=== PATIENT | female | born 1950 | race Caucasian/White ===

== ENCOUNTER 2019-02-15 16:58 | Inpatient (IN) | payer OTHER ==
--- NOTE | 2019-02-15 17:45 | PDOC ---
History of Present Illness - General Chief Complaint: Shortness of Breath Stated Complaint: BACK PAIN,SOB Time Seen by Provider: 02/15/19 17:03 - History of Present Illness Initial Comments: 69F PMH HTN, osteoporosis BIBEMS for SOB in setting of 1 week of increasingly severe thoracic back pain radiating to the left costal margin. Pt was seen for this pain at [facility], was found to be hyponatremic (?water restriction), admitted, was told pt has disc herniation. Pt's family unhappy with care received there and AMA'd on Tuesday02/12/19. Pain has been worsening since AMA; pt who is usually ambulatory unable to ambulate now 2/2 pain. SOB started today , occurs w/ deep breaths. Pain worse w/ change of position. Denies urinary retention, bladder and bowel incontinence, saddle numbness, extremity numbness, tingling, focal weakness. Denies f/c, malignancy hx, IVDU, cp, n/v. No personal or family hx VTE, no recent immobilization, surgeries, or travel. Atraumatic w/ o fall. PCP as per system NKDA No known lung pathology hx obtained w/ assistance by family at bedside Past History - Past Medical History Allergies/Adverse Reactions: Allergies Allergy/AdvReac Type Severity Reaction Status Date / Time No Known Allergies Allergy Verified 02/15/19 17:15 Home Medications: Ambulatory Orders Alendronate Sodium 35 mg PO WEEKLY 02/16/19 Levothyroxine [Synthroid -] 112 mcg PO DAILY 02/16/19 Lisinopril [Zestril] 2.5 mg PO DAILY 02/16/19 Loratadine 10 mg PO DAILY 02/16/19 Omeprazole 40 mg PO DAILY 02/16/19 Acetaminophen [Tylenol] 650 mg PO Q6H PRN #30 capsule 02/19/19 Calcium 250Mg/Vit-D 125 Units [Oscal 250 mg+D -] 1 tab PO DAILY tab 02/19/19 Lidocaine 5% Patch [Lidoderm -] 1 patch TP DAILY #30 patch 02/19/19 COPD: No HTN: Yes Hypercholesterolemia: (osteoporosis, herniated vertebral disc) - Surgical History Abdominal Surgery: Yes (right inguinal hernia repair) - Psycho Social/Smoking Cessation Hx Smoking History: Never smoked Information on smoking cessation initiated: No Hx Alcohol Use: No Drug/Substance Use Hx: No Review of Systems - Review of Systems Comments:: CONSTITUTIONAL: Denies F / C. Denies acute unintentional weight loss. HEENT: Endorses vertigo & dizziness w/ standing RESP: Endorses SOB CARD: Denies chest pain GI: Denies N / V / D, abdominal pain, bowel incontinence : Denies urinary retention, urinary incontinence SKIN: Denies rashes NEURO: Denies numbness, tingling, weakness MSK: Endorses thoracic back pain *Physical Exam - Vital Signs Last Vital Signs Temp Pulse Resp BP Pulse Ox 97.6 F 90 16 141/55 L 100 02/15/19 17:44 02/15/19 17:00 02/15/19 17:00 02/15/19 17:00 02/15/19 17:00 - Physical Exam VS: SaO2 88-90% RA GEN: Cachetic, thin. AAOx3. HEENT: NC/AT, EOMI, PERRLA, lazy eye. No facial asymmetry. Moist mucous membranes. Normal voice. Supple neck w/ FROM. CV: +TTP of the left costal margin, no rash. S1/S2, RRR, no m/r/g LUNG: Normal respiratory effort. CTAB, no wheezes, crackles, rales, rhonchi. GI: Soft, ndnt, +BS EXTREMITIES: 2+ distal pulses. No LE edema. No obvious deformities of all extremities. SKIN: Warm, dry. no rashes overlying the painful area. No tenderness to brisk touch overlying region. PSYCH: Normal mood and affect. NEURO: Moving all extremities. 5/5 UE strength b/l. 4/5 LE strength b/l. Symmetric sensation. No groin anesthesia. BACK: Kyphotic. +TTP of the low thoracic region - paraspinal and midline. No step offs. No signs of trauma. ED Treatment Course - LABORATORY CBC & Chemistry Diagram: 02/18/19 07:23 02/19/19 12:05 Medical Decision Making - Medical Decision Making 02/15/19 18:24 69F PMH Osteoporosis BIBEMS for SOB and worsening thoracic level back pain. Neurologically intact. SaO2 on RA was 88-90%; started on 2L NC. DDx - concern for malignancy, compression fracture. Unlikely zoster. Will eval for ACS, dehydration, electrolytes abnormality - CBC, CMP, Cardiac - EKG - CXR - CT Head, C/T/L spine - pain ctrl 02/15/19 19:00 Signed out to PM team for further management Likely admit Discharge - Discharge Information Problems reviewed: Yes Clinical Impression/Diagnosis: Back pain Qualifiers: Back pain location: thoracic back pain Chronicity: unspecified Back pain laterality: unspecified Qualified Code(s): M54.6 - Pain in thoracic spine - Follow up/Referral - Patient Discharge Instructions - Post Discharge Activity
[2019-02-15] MEDS ORDERED: LIDOCAINE 5% TOPICAL PATCH TP ONE (18:01)
[2019-02-15] MEDS ORDERED: ACETAMINOPHEN 325 MG TABLET (FP) PO ONE (18:01)
[2019-02-15] MEDS ORDERED: LIDOCAINE 5% TOPICAL PATCH ONE ×2 (18:49→22:23)
[2019-02-15] MEDS ORDERED: ACETAMINOPHEN 325 MG TABLET (FP) ONE (18:49)
--- NOTE | 2019-02-15 19:11 | PDOC ---
*Physical Exam - Vital Signs Last Vital Signs Temp Pulse Resp BP Pulse Ox 97.6 F 90 16 141/55 L 100 02/15/19 17:44 02/15/19 17:00 02/15/19 17:00 02/15/19 17:00 02/15/19 17:00 ED Treatment Course - Medications Given in the ED: ED Medications Discontinued Medications Generic Name Dose Route Start Last Admin Trade Name Freq PRN Reason Stop Dose Admin Acetaminophen 650 mg 02/15/19 18:01 02/15/19 19:01 Tylenol - PO 02/15/19 18:02 650 mg ONCE ONE Administration Lidocaine 1 patch 02/15/19 18:01 02/15/19 19:01 Lidoderm Patch - TP 02/15/19 18:02 1 patch ONCE ONE Administration Medical Decision Making - Medical Decision Making 02/15/19 19:57 Sign out received from Dr. Recinos. 69F w/hx HTN, osteoporosis p/w one week of sob, back pain concerning for malignancy, compression fracture. Pending: Labs Imaging Dispo: Likely admit Discharge - Follow up/Referral Referrals: Melodie Mccormack MD [Primary Care Provider] - - Patient Discharge Instructions - Post Discharge Activity
[2019-02-15 20:15] LABS: BASO % 0.4 % (0-2.0); EOS % 0.2 % (0-4.5); HEMATOCRIT 40.7 % (32.4-45.2); HEMOGLOBIN 12.9 GM/dL (10.7-15.3); MCH 26.4 pg (25.7-33.7); MCHC 31.8 g/dl (32.0-36.0); MEAN CELL VOLUME 83.2 fl (80-96); MEAN PLT VOLUME 7.8 fl (7.5-11.1); MONO % 7.1 % (3.8-10.2); NEUT % 78.3 % (42.8-82.8); PLATELET COUNT 258 K/MM3 (134-434); RBC 4.89 M/mm3 (3.60-5.2); RDW 17.1 % (11.6-15.6); WHITE BLOOD COUNT 4.5 K/mm3 (4.0-10.0)
[2019-02-15 20:38] LABS: ALBUMIN 3.4 g/dl (3.4-5.0); BILIRUBIN,TOTAL 0.1 mg/dL (0.2-1); CALCIUM 8.8 mg/dL (8.5-10.1); CREATININE 0.7 mg/dL (0.55-1.3); N-TERMINAL BNP 321.5 pg/ml (5-125); POTASSIUM 4.5 mmol/L (3.5-5.1); TOT PROT 7.7 g/dl (6.4-8.2)
--- NOTE | 2019-02-15 21:15 | PDOC ---
Documentation entered by Lyla Lawson SCRIBE, acting as scribe for Mj Jenkins MD. Mj Jenkins MD: This documentation has been prepared by the Lulu simon Brenda, SCRIBE, under my direction and personally reviewed by me in its entirety. I confirm that the documentation accurately reflects all work, treatment, procedures, and medical decision making performed by me. Attending Attestation - Resident Resident Name: Jose Luis Recinos - ED Attending Attestation I have performed the following: I have examined & evaluated the patient, The case was reviewed & discussed with the resident, I agree w/resident's findings & plan, Exceptions are as noted - HPI HPI: 02/15/19 18:03 The patient is a 69 year old female, with a significant PMH of HTN, osteoporosis , thyroid disorder who presents to the emergency department BIB with shortness of breath associated with 1 week as well as thoracic back pain radiating to the right and left side. Patient reports being seen at [facility] for the same pain and found to be hyponatremic and was admitted for a disc herniation. Patient's family was unhappy with care so AMA'd on Tuesday (02/12/2019). The patient reports that the pain has been worsening since the AMA and has been unable to ambulate due to pain (normally ambulates). Patient states that the SOB started today and is aggravated by deep breaths and change of position. + mild non productive cough for 5 days. Family and pt denies any recent falls or trauma. The patient denies chest pain, headache and dizziness. Denies fever, chills, nausea, vomiting, diarrhea and constipation. Denies dysuria, frequency, urgency and hematuria. Allergies: NKA Past surgical history: right inguinal hernia repair Social history: No reported hx of tobacco use, alcohol use or illicit drug use. PCP: Melodie Mccormack - Physicial Exam PE: 02/15/19 18:05 GENERAL: Awake, alert, and fully oriented, in no acute distress. Very thin. HEAD: No signs of trauma EYES: Sclera anicteric, conjunctiva clear ENT: Oropharynx clear without exudates. Moist mucosa NECK: Normal ROM, supple, no lymphadenopathy, JVD, or masses LUNGS: Breath sounds equal, clear to auscultation bilaterally. No wheezes, and no crackles HEART: Regular rate and rhythm, normal S1 and S2, no murmurs, rubs or gallops ABDOMEN: Soft, nontender, normoactive bowel sounds. No guarding, no rebound. No masses EXTREMITIES: +boutinere's deformities to fingers b/l. Normal range of motion, no edema. No clubbing or cyanosis. No cords, erythema, or tenderness. 2+ radial and DP/TP pulses b/l BACK: +diffuse cervical, thoracic, and lumbar ttp. No deformities or step offs. NEUROLOGICAL: Normal speech, cranial nerves intact, equal strength and sensation b/l SKIN: Warm, Dry, normal turgor, no rashes or lesions noted. - Medical Decision Making 02/15/19 21:09 69-year-old female presents the emergency department with 2 weeks of atraumatic thoracic back pain as well as 1 week of shortness of breath. With regards to back pain, patient has diffuse midline spinal tenderness palpation. CTs of the cervical, thoracic and lumbar spine are revealing of a T9 acute fracture and 2 other likely chronic fractures per the radiologist. Pain is currently improved with Tylenol but still present. Patient is still unable to ambulate. With regards to shortness of breath, given recent admission and immobilization due to back pain, will obtain a CTA of the chest to rule out PE. Chest x-ray is revealing of a possible pneumonia, will be able to better elucidate this finding on the pending CT scan. Anticipate admission for inability to ambulate and possible pneumonia versus PE. Heart Score/ECG Review #1 02/15/19 21:14 Twelve-lead EKG was performed and reviewed by me. Normal sinus rhythm, rate 88. Normal axis and intervals. No ST elevations. Isolated T wave inversion in lead III.
[2019-02-15] MEDS ORDERED: LIDOCAINE PATCH REMOVAL MC SCH (22:00)
--- NOTE | 2019-02-16 00:29 | PN ---
Teaching Attending Note Name of Resident: Hoda Dan ATTENDING PHYSICIAN STATEMENT I saw and evaluated the patient. I reviewed the resident's note and discussed the case with the resident. I agree with the resident's findings and plan as documented. SUBJECTIVE: 69 year old female, with a significant PMH of HTN, osteoporosis, thyroid disorder complaining of shortness of breath and back pain in the thoracic region for about 1 week. Was seen at [facility] for similar complaint and found to have vertebral disc herniation. Patient left AGAINST MEDICAL ADVICE on 02/12/2019. Back pain has been worsening since then and patient has difficulty with ambulation. In the emergency room, extensive imaging studies were performed. OBJECTIVE: Last Vital Signs Temp Pulse Resp BP Pulse Ox 97.9 F 64 16 168/74 99 02/16/19 00:21 02/16/19 00:21 02/16/19 00:21 02/16/19 00:21 02/16/19 00:21 GENERAL: Well developed, well nourished. Awake and alert. No acute distress. HEENT: Normocephalic, atraumatic. PERRLA, EOMI. No conjunctival pallor. Sclera are non- icteric. Moist mucous membranes. Oropharynx is clear. NECK: Supple. Full ROM. No JVD. Carotid pulses 2+ and symmetric, without bruits. No thyromegaly. No lymphadenopathy. CARDIOVASCULAR: Regular rate and rhythm. No murmurs, rubs, or gallops. Distal pulses are 2+ and symmetric. PULMONARY: No evidence of respiratory distress. Lungs clear to auscultation bilaterally. No wheezing, rales or rhonchi. ABDOMINAL: Soft. Non-tender. Non-distended. No rebound or guarding. No organomegaly. Normoactive bowel sounds. MUSCULOSKELETAL Severe kyphosis was noted with obvious chest wall deformity. Deformity of fingers bilaterally EXTREMITIES: No cyanosis. No clubbing. No edema. No calf tenderness. SKIN: Warm and dry. Normal capillary refill. No rashes. No jaundice. NEUROLOGICAL: Alert, awake, appropriate. Cranial nerves 2-12 intact. No deficits to light touch and temperature in face, upper extremities and lower extremities. No motor deficits in the in face, upper extremities and lower extremities. Normoreflexic in the upper and lower extremities. Normal speech. Toes are down- going bilaterally. Gait is normal without ataxia. PSYCHIATRIC: Cooperative. Good eye contact. Appropriate mood and affect. Abnormal Lab Results 02/15/19 02/15/19 02/15/19 18:15 18:15 18:15 MCHC 31.8 L RDW 17.1 H Sodium 135 L Carbon Dioxide 33 H Anion Gap 5 L Total Bilirubin 0.1 L B-Natriuretic Peptide 321.5 H TSH 6.63 H Imaging studies reviewed Head CT without contrast showed no acute intracranial pathology, probable mild left cerebellar atrophy. Thoracic spine, lumbar spine CT without contrast showed mild T9 compression fracture, acute. Mild T2 vertebral body compression fracture, probably chronic. T12 vertebral body compression fracture which appears chronic. Moderate C7 vertebral body compression fracture without bony retropulsion. Mild acute T9 vertebral body compression fracture without bony retropulsion. Diffuse thyromegaly CT angiogram of chest was performed and showed no definite evidence of pulmonary embolism. Right basilar atelectasis was seen posteriorly. Moderate to market dilatation involving the esophagus. Probable mild cardiomegaly at these moderate diffuse thyromegaly. ASSESSMENT AND PLAN: 69-year-old woman with Severe kyphosis and chest wall deformity with loss of lung volume and possible respiratory failure as a result, osteoporosis and multiple vertebral compression fractures as described above causing pain, difficulties with ambulation, and shallow breaths leading to atelectasis. Patient might benefit from neurosurgical evaluation consideration for vertebroplasty or kyphoplasty. Should assess blood gas on room air to evaluate for necessity for home oxygen. Admit to MedSurg Pain control with Tylenol and if inadequate control would use opiates Calcium and vitamin D supplementation Neurosurgical evaluation Bedrest #Subjective shortness of breathsuspect likely shallow respirations from pain secondary to vertebral compression fractures, resultant atelectasis. Possible restrictive respiratory failure due to underlying chest wall deformity. Pain control Considering incentive spirometry ABG on room air to assess for possible need of home O2 #Hypothyroidismelevated TSH Send free and total T4 Continue home dose levothyroxine #Heparin subcutaneously for DVT prophylaxis
[2019-02-16] MEDS ORDERED: MORPHINE SULFATE 2 MG/ML VIAL IVPUSH PRN (00:38)
--- NOTE | 2019-02-16 00:55 | HP ---
CHIEF COMPLAINT:back pain and shortness of breath PCP: Radha HISTORY OF PRESENT ILLNESS: 69 yo F PMH HTN, osteoporosis, hypothyroid, achalasia presents to ED with back pain and shortness of breath. pt states symptoms began on 01/25 and have been progressively worsening. pt states she was sitting down when pain began. denies any injuries or strenous activity. describes the pain as mid thoracic pain that does not radiate. she states that moving and changing positions exacerbates the pain. pt went to [facility] last week (02/08)for this pain. according to her family, they only addressed her problems of low sodium and high potassium. the family states that at [facility] they werent helping her back pain so they left AMA. While pt was home, she was having increasing back pain and shortness of breath. the pain is so bad it stops her from ambulating . pt denies fevers, chills, nausea, vomitting, denies incontinence, denies diarrhea, constipation. endorses a healthy appetite. when pt was in ED and prompted to move, she desaturated into 70s on RA. ER course was notable for: (1)CT head neg (2)CT spine (3)lidocaine patch Recent Travel: denies PAST MEDICAL HISTORY: see HPI PAST SURGICAL HISTORY: L hernia surgery, gastric and esophageal surgery (4-5x for achalasia) , L elbow surgery Social History: Smoking:denies Alcohol:denies Drugs: denies Allergies No Known Allergies Allergy (Verified 02/15/19 17:15) HOME MEDICATIONS: Home Medications Medication Instructions Recorded Acetaminophen [Pain Relief] 02/16/19 Betamethasone/Propylene Glyc 02/16/19 [Betamethasone Dp Aug 0.05% Crm] Cilostazol 100 mg PO 02/16/19 Indomethacin 50 mg PO 02/16/19 Ketoconazole 2% Shampoo [Nizoral 02/16/19 2% Shampoo -] Levothyroxine [Synthroid -] 112 mcg PO DAILY 02/16/19 Lisinopril [Zestril] 2.5 mg PO 02/16/19 Loratadine 10 mg PO 02/16/19 Multivitamin [One-Daily 1 each PO 02/16/19 Multi-Vitamin] Permethrin 5% Topical Cream 02/16/19 [Elimite -] REVIEW OF SYSTEMS CONSTITUTIONAL: Absent: fever, chills, diaphoresis, generalized weakness, malaise, loss of appetite, weight change HEENT: Absent: rhinorrhea, nasal congestion, throat pain, throat swelling, difficulty swallowing, mouth swelling, ear pain, eye pain, visual changes CARDIOVASCULAR: Absent: chest pain, syncope, palpitations, irregular heart rate, lightheadedness , peripheral edema RESPIRATORY: Absent: cough, shortness of breath, dyspnea with exertion, orthopnea, wheezing, stridor, hemoptysis GASTROINTESTINAL: Absent: abdominal pain, abdominal distension, nausea, vomiting, diarrhea, constipation, melena, hematochezia GENITOURINARY: Absent: dysuria, frequency, urgency, hesitancy, hematuria, flank pain, genital pain MUSCULOSKELETAL: Present: back pain Absent: myalgia, arthralgia, joint swelling, neck pain SKIN: Absent: rash, itching, pallor HEMATOLOGIC/IMMUNOLOGIC: Absent: easy bleeding, easy bruising, lymphadenopathy, frequent infections ENDOCRINE: Absent: unexplained weight gain, unexplained weight loss, heat intolerance, cold intolerance NEUROLOGIC: Present: unsteady gait, dizziness Absent: headache, focal weakness or paresthesias, seizure, mental status changes, bladder or bowel incontinence PSYCHIATRIC: Absent: anxiety, depression, suicidal or homicidal ideation, hallucinations. PHYSICAL EXAMINATION Vital Signs - 24 hr 02/15/19 02/15/19 02/16/19 17:00 17:44 00:21 Temperature 99.5 F 97.6 F 97.9 F Pulse Rate 90 Pulse Rate [ 64 Right] Respiratory 16 16 Rate Blood Pressure 141/55 L Blood Pressure 168/74 [Right Arm] O2 Sat by Pulse 100 99 Oximetry (%) GENERAL: Awake, alert, and fully oriented, in no acute distress. cachectic elderly female HEAD: Normal with no signs of trauma. EYES: Pupils equal, round and reactive to light, extraocular movements intact EARS, NOSE, THROAT: Ears normal, nares patent, oropharynx clear without exudates. Moist mucous membranes. NECK: Normal range of motion, supple without lymphadenopathy, JVD, or masses. LUNGS: Breath sounds equal, clear to auscultation bilaterally. No accessory muscle use. HEART:tachycardic and regular rhythm, normal S1 and S2 without murmur, rub or gallop. ABDOMEN: Soft, nontender, not distended, normoactive bowel sounds MUSCULOSKELETAL: T8-L1 tenderness. No CVA tenderness. UPPER EXTREMITIES: 2+ pulses, warm, well-perfused. No cyanosis. No clubbing. No peripheral edema. LOWER EXTREMITIES: 2+ pulses, warm, well-perfused. No calf tenderness. No peripheral edema. 5/5 muscle strength NEUROLOGICAL: Cranial nerves II-XII intact. Normal speech. slow, unsteady gait. PSYCHIATRIC: Cooperative. Good eye contact. Appropriate mood and affect. SKIN: Warm, dry, normal turgor, no rashes or lesions noted, normal capillary refill. Rectal: no stool in vault, good sphincter tone, no external hemorrhoids visualized, no internal hemorrhoids felt, no active bleeding noted, no blood at tip of glove Laboratory Last Values WBC 4.5 K/mm3 (4.0-10.0) 02/15/19 18:15 RBC 4.89 M/mm3 (3.60-5.2) 02/15/19 18:15 Hgb 12.9 GM/dL (10.7-15.3) 02/15/19 18:15 Hct 40.7 % (32.4-45.2) 02/15/19 18:15 MCV 83.2 fl (80-96) 02/15/19 18:15 MCH 26.4 pg (25.7-33.7) 02/15/19 18:15 MCHC 31.8 g/dl (32.0-36.0) L 02/15/19 18:15 RDW 17.1 % (11.6-15.6) H 02/15/19 18:15 Plt Count 258 K/MM3 (134-434) 02/15/19 18:15 MPV 7.8 fl (7.5-11.1) 02/15/19 18:15 Absolute Neuts (auto) 3.5 K/mm3 (1.5-8.0) 02/15/19 18:15 Neutrophils % 78.3 % (42.8-82.8) 02/15/19 18:15 Lymphocytes % 14.0 % (8-40) 02/15/19 18:15 Monocytes % 7.1 % (3.8-10.2) 02/15/19 18:15 Eosinophils % 0.2 % (0-4.5) 02/15/19 18:15 Basophils % 0.4 % (0-2.0) 02/15/19 18:15 Nucleated RBC % 0 % (0-0) 02/15/19 18:15 Sodium 135 mmol/L (136-145) L 02/15/19 18:15 Potassium 4.5 mmol/L (3.5-5.1) 02/15/19 18:15 Chloride 98 mmol/L (98-107) 02/15/19 18:15 Carbon Dioxide 33 mmol/L (21-32) H 02/15/19 18:15 Anion Gap 5 MMOL/L (8-16) L 02/15/19 18:15 BUN 16.0 mg/dL (7-18) 02/15/19 18:15 Creatinine 0.7 mg/dL (0.55-1.3) 02/15/19 18:15 Est GFR (CKD-EPI)AfAm 101.03 02/15/19 18:15 Est GFR (CKD-EPI)NonAf 87.17 02/15/19 18:15 Random Glucose 92 mg/dL (74-106) 02/15/19 18:15 Calcium 8.8 mg/dL (8.5-10.1) 02/15/19 18:15 Magnesium 2.0 mg/dL (1.8-2.4) 02/15/19 18:15 Total Bilirubin 0.1 mg/dL (0.2-1) L 02/15/19 18:15 AST 16 U/L (15-37) 02/15/19 18:15 ALT 23 U/L (13-61) 02/15/19 18:15 Alkaline Phosphatase 91 U/L (45-117) 02/15/19 18:15 Creatine Kinase 58 U/L (26-192) 02/15/19 18:15 Troponin I < 0.02 ng/ml (0.00-0.05) 02/15/19 18:15 B-Natriuretic Peptide 321.5 pg/ml (5-125) H 02/15/19 18:15 Total Protein 7.7 g/dl (6.4-8.2) 02/15/19 18:15 Albumin 3.4 g/dl (3.4-5.0) 02/15/19 18:15 TSH 6.63 uIU/ml (0.358-3.74) H 02/15/19 18:15 Stool Occult Blood Negative (NEGATIVE) 02/16/19 00:12 CTA chest: No definite CT evidence of pulmonary embolism. Evaluation of the subsegmental and distal segmental vessels is somewhat limited due to respiratory motion artifact. Right basilar atelectasis is seen posteriorly. There is moderate to marked dilatation involving the esophagus/stomach along the length of the chest - ? prior gastric pull-through surgery. Probable mild cardiomegaly. At least moderate diffuse thyromegaly. CT cervial/ thoracic/ Lumbar: A mild acute T9 vertebral body compression fracture is noted without bony retropulsion. A mild T2 vertebral body compression fracture is seen which is probably chronic. No bony retropulsion is seen. MRI evaluation may be considered. 8 marked chronic T12 vertebral body compression fracture is noted with mild bony retropulsion. A moderate C7 vertebral body compression fracture is seen without bony retropulsion. This fracture is of indeterminate age of the basis of the current exam although more likely chronic. MRI evaluation may be considered. Probable diffuse thyromegaly. Sonographic evaluation may be performed. The partially imaged chest demonstrates moderate to marked dilatation of either the esophagus and/ or stomach along the length of the chest with intraluminal food/debris - ? prior gastric pull- through surgery. CT head: No CT evidence of acute intracranial pathology. Probable mild left cerebellar atrophy. Additional comments as noted above. ASSESSMENT/PLAN: 69 yo F PMH HTN, osteoporosis, hypothyroid, achalasia presents to ED with back pain and shortness of breath. Pt is admitted to medicine for acute respiratory failure thoracic compression fractures Acute Hypoxic Respiratory Failure likely 2/2 from pain - CTA negative for PE, R basilar atelectasis -on exam, hypoxia was worsened when prompted move. - continue 2L NC, taper as tolerated - continue pain management - continue incentive spirometry - pending ABG on room air -assess for home O2 -Pulm recs appreciated C7 vertebral body compression fracture - Neurosurgery recs appreciated ( Dr. Ortez) - continue Lidocaine patch -continue morphine for pain - consider MRI - Ca / Vit D supplementation Hypothyroid - TSH 6.63, pending free and total T4 - c/w home Synthroid HTN - continue home lisinopril F/E/N - continue to monitor lytes - Sodium controlled diet DVT ppx: Hep SQ Dispo: admit to medicine ATTENDING PHYSICIAN STATEMENT I saw and evaluated the patient. I reviewed the resident's note and discussed the case with the resident. I agree with the resident's findings and plan as documented. SUBJECTIVE: OBJECTIVE: ASSESSMENT AND PLAN:
[2019-02-16 05:48] VITALS: BMI 19.3
[2019-02-16] MEDS: LEVOTHYROXINE NA 112 MCG TABLET (FP) PO SCH (06:25)
[2019-02-16] MEDS: HEPARIN NA (PORCINE) 5,000 UNITS/ML 1ML VIAL SQ SCH ×3 (06:25→22:05)
[2019-02-16 07:29] LABS: ARTERIAL BLOOD GAS BASE EXCESS 8.4 meq/l (-2-2); ARTERIAL BLOOD GAS PO2 57.8 mmHg (80-100); ARTERIAL BLOOD GAS pH 7.42 (7.35-7.45)
[2019-02-16 07:30] LABS: ALLENS TEST POSITIVE
--- NOTE | 2019-02-16 08:44 | PN ---
Progress Note (short form) - Note Progress Note: NEUROSURGERY CONSULT DICTATED Chart reviewed Pt examined Sister at bedside h/o HTN, osteoporosis, hypothyroid, achalasia c/o mid back pain and shortness of breath since 01/25 and have been progressively worsening. Denies any injuries /falls or strenous activity. Was at [facility] being treated but still with pain so left AMA. While pt was home, she was having increasing back pain and shortness of breath. No incontinence. PE; General- thin, kyphotic CN- Mild OD medial gaze lag, no ptosis; Motor- 4+-5 B UE/LE; Sensation- intact LT; DTR- 2+ Pain lower T spine CT of spine- osteopenia, marked T12 compression fx with minimal retopulsion, mild T9 > T10 compression deformity, mild T2 fx, moderate C7 compression fx; no marked canal stenosis at any level Medical management of osteoporosis TLSO brace for T12 fx; Pt agrees to try Pain management to consider kyphoplasty/vertebroplasty if persistent pain
[2019-02-16 09:39] LABS: BASO % 0.7 % (0-2.0); EOS % 1.2 % (0-4.5); HEMATOCRIT 37.1 % (32.4-45.2); HEMOGLOBIN 11.9 GM/dL (10.7-15.3); LYMPH % 35.1 % (8-40); MCH 26.3 pg (25.7-33.7); MEAN PLT VOLUME 7.7 fl (7.5-11.1); MONO % 14.3 % (3.8-10.2); NEUT % 48.7 % (42.8-82.8); PLATELET COUNT 248 K/MM3 (134-434); RBC 4.52 M/mm3 (3.60-5.2); WHITE BLOOD COUNT 3.6 K/mm3 (4.0-10.0)
[2019-02-16] MEDS ORDERED: ALENDRONATE SODIUM 35 MG PO SCH (10:00)
[2019-02-16 10:02] LABS: ALBUMIN 3.2 g/dl (3.4-5.0); BILIRUBIN,TOTAL 0.2 mg/dL (0.2-1); BLOOD UREA NITROGEN 11.6 mg/dL (7-18); CALCIUM 8.8 mg/dL (8.5-10.1); CREATININE 0.4 mg/dL (0.55-1.3); PHOSPHOROUS 4.3 mg/dL (2.5-4.9); TOT PROT 7.2 g/dl (6.4-8.2)
[2019-02-16] MEDS: CALCIUM 250MG/VIT-D 125 UNITS 1 COMBO TABLET PO SCH (10:20)
[2019-02-16] MEDS ORDERED: PT OWN MED DRAWER 7, Y5N ONE (10:20)
[2019-02-16] MEDS: MULTIVITAMINS (DAILY MVI) TABLET (FP) PO SCH (10:21)
[2019-02-16] MEDS: LISINOPRIL 5 MG TABLET (FP) PO SCH (10:21)
[2019-02-16] MEDS ORDERED: LIDOCAINE 5% TOPICAL PATCH TP ONE (11:37)
[2019-02-16] MEDS ORDERED: ACETAMINOPHEN 500 MG TABLET (FP) PO PRN (11:38)
[2019-02-16] MEDS ORDERED: IBUPROFEN 600 MG TABLET (FP) PO PRN (11:38)
--- NOTE | 2019-02-16 12:30 | CONS ---
DATE OF CONSULTATION: 02/16/2019 CHIEF COMPLAINT: Midback pain. HISTORY OF PRESENT ILLNESS: Patient is a 69-year-old right-handed female with a history of hypertension, osteoporosis, hypothyroidism, and achalasia who complains of increasing midback pain and spasm since about mid-January. She has been getting worse in terms of the pain. She has difficulty ambulating because of the pain. She denies any recent traumas or falls. She was admitted to [facility] where she was being treated medically but still with significant pain and decided to leave AMA with the family. She denies any bowel or bladder incontinence. She actually denies any leg weakness or numbness. PAST MEDICAL HISTORY: Significant for osteoporosis, hypothyroidism, hypertension, achalasia. CURRENT MEDICATIONS: Include Prinivil, subcutaneous heparin, vitamin C, morphine sulfate, Os-Henrik/vitamin D, levothyroxine. ALLERGIES: There is no known drug allergies. FAMILY HISTORY: Noncontributory. SOCIAL HISTORY: She does not smoke or drink. She lives at home with her family. She is retired. REVIEW OF SYSTEMS: Otherwise negative for major constitutional, head, neck, cardiovascular, pulmonary, gastrointestinal, genitourinary, endocrinological, neurological, or psychological problems except for the above. PHYSICAL EXAMINATION: General: She is awake and alert. She is sitting up in the bed. Vital Signs: Maximum temperature 98.2, blood pressure 119/72, pulse rate 67, O2 saturation 99% on 2 L. HEENT: Shows her to be normocephalic, atraumatic, anicteric. Neck: Supple. There is no cervical spine tenderness to palpation. There is tenderness in the lower thoracic spine over the thoracolumbar junction, however. Coronary: Demonstrates regular rhythm. Lungs: Clear bilaterally. She has decreased breath sounds at bases. Abdomen: Benign. Extremities: No signs of DVT. Neurologic: She is awake, alert, oriented x3. She is Frisian speaking. Cranial nerve examination is intact 2-12 except for mild right eye medial gaze lag. Motor examination shows 4+/5 to 5/5 strength of the upper and lower extremities bilaterally. Sensory examination intact to light touch. Deep tendon reflexes are 2+ throughout except for slight diminished ankle reflexes. There is some pathological and long-tract sign. Cerebellar examination shows intact [id number] examination. LABORATORY EXAMINATION: Shows white blood cell count 4.5, hemoglobin 12.9, platelet count 258,000. Serum sodium is 135, potassium 4.5, BUN 15, creatinine 0.7. Troponin less than 0.02. Stool occult blood was negative. CT scan of the head demonstrated left cerebellar atrophy. There is also mild cerebral atrophy. There is mild ventricular dilatation consistent with atrophy. CT scan of the cervical spine, thoracic, and lumbar spine demonstrated diffuse osteopenia. There is a C7 compression fracture, which is moderate. There is no bony retropulsion. There is a mild T2, T9, T10 superior endplate fracture. There is marked T12 vertebral body compression fracture, which appears to be chronic with no soft tissue involvement. There is mild endplate retropulsion. There is no significant canal compromise at any level. There is significant kyphotic deformity over the thoracic and cervical spine. IMPRESSION: 1. Multiple osteoporotic compression fractures at C7, T2, T9, T10, and T12 most significant at T12 with increase in midback pain. 2. Hypertension. 3. Hypothyroidism. RECOMMENDATIONS: Patient presents with an almost [id number] increasing midback pain. She has difficulty ambulating because of pain. She has undergone medication treatments and remains with severe pain. The most likely pain generator is T12 marked compression fracture. A course of pharmacologic treatment and physical therapy could be contemplated. Would also suggest using a TLSO brace whenever she is out of bed. This was discussed with the patient and her sister, who was at the bedside at the time of the consultation. Additionally, a course of physical therapy and rehabilitation is recommended to help her improve her stamina and overall physical condition. Long-term treatment for osteoporosis, per her medical physicians, is needed. No surgical intervention is indicated. If the patient has persistent pain, pain management consultation could be contemplated to consider vertebroplasty or kyphoplasty for T12 fracture, which is most marked at this time. I will leave the discussion of pros and cons of such treatments to the treating pain management physician. MORIS ZHENG M.D. [id number] MTDD
--- NOTE | 2019-02-16 13:01 | CON.PULM ---
Consult Consult Specialty:: PULMONARY Referred by:: BETTY Reason for Consultation:: SOB - History of Present Illness Chief Complaint: SOB History of Present Illness: 69 year old female, with a significant PMH of HTN, osteoporosis, kyphosis, achalasia, thyroid disorder complaining of shortness of breath and back pain in the thoracic region for about 1 week. Was seen at [facility] for similar complaint and found to have vertebral disc herniation. Patient left AGAINST MEDICAL ADVICE on 02/12/2019. Back pain has been worsening since then and patient has difficulty with ambulation. In the emergency room, extensive imaging studies were performed. - History Source History Provided By: Patient, Medical Record Limitations to Obtaining History: Language Barrier - Past Medical History [employer]: No: Alzheimer's Cardio/Vascular: No: AFIB Pulmonary: Yes: COPD. No: O2 Dependent, Pneumonia Gastrointestinal: No: Ascites Hepatobiliary: No: Cirrhosis Renal/: No: Renal Failure Reproductive: Yes: Postmenopausal ...: No Heme/Onc: Yes: Anemia - Alcohol/Substance Use Hx Alcohol Use: No - Smoking History Smoking history: Never smoked - Social History Place of : Other History of Recent Travel: No Home Medications - Allergies Allergies/Adverse Reactions: Allergies Allergy/AdvReac Type Severity Reaction Status Date / Time No Known Allergies Allergy Verified 02/15/19 17:15 - Home Medications Home Medications: Ambulatory Orders Acetaminophen [Pain Relief] 02/16/19 Alendronate Sodium 35 mg 02/16/19 Betamethasone/Propylene Glyc [Betamethasone Dp Aug 0.05% Crm] 02/16/19 Cilostazol 100 mg PO 02/16/19 Indomethacin 50 mg PO 02/16/19 Ketoconazole 2% Shampoo [Nizoral 2% Shampoo -] 02/16/19 Levothyroxine [Synthroid -] 112 mcg PO DAILY 02/16/19 Lisinopril [Zestril] 2.5 mg PO 02/16/19 Loratadine 10 mg PO 02/16/19 Multivitamin [One-Daily Multi-Vitamin] 1 each PO 02/16/19 Omeprazole 40 mg PO 02/16/19 Permethrin 5% Topical Cream [Elimite -] 02/16/19 Family Medical History Family History: Unremarkable Review of Systems - Review of Systems Constitutional: denies: Fever Eyes: denies: Blurred Vision HENT: reports: Difficult Swallowing Neck: denies: Decreased ROM Cardiovascular: denies: Chest Pain Respiratory: reports: Cough, SOB on Exertion Gastrointestinal: denies: Abdominal Pain Genitourinary: denies: Burning Physical Exam Vital Sings: Vital Signs Temperature 97.9 F 02/16/19 09:00 Pulse Rate 72 02/16/19 09:00 Respiratory Rate 20 02/16/19 09:00 Blood Pressure 131/53 L 02/16/19 09:00 O2 Sat by Pulse Oximetry (%) 95 02/16/19 09:00 Constitutional: Yes: Calm Eyes: Yes: EOM Intact HENT: Yes: Normocephalic Neck: Yes: Trachea Midline Cardiovascular: Yes: S1, S2 Respiratory: Yes: Diminished (at right base) Gastrointestinal: Yes: Normal Bowel Sounds, Soft Edema: No Labs: CBC, BMP 02/16/19 07:30 02/16/19 07:30 ABG Results ABG pH 7.42 (7.35-7.45) 02/16/19 07:10 ABG pCO2 at Pt Temp 53.0 mmHg (35-45) H 02/16/19 07:10 ABG pO2 at Pt Temp 57.8 mmHg (80-100) L 02/16/19 07:10 ABG HCO3 33.7 mmol/L (22-27) H 02/16/19 07:10 ABG O2 Sat (Measured) 88.0 % (95-98) L 02/16/19 07:10 ABG O2 Content 11.8 % vol 02/16/19 07:10 ABG Base Excess 8.4 meq/l (-2-2) H 02/16/19 07:10 Imaging - Results Chest X-ray: Report Reviewed, Image Reviewed Cat Scan: Report Reviewed, Image Reviewed Problem List - Problems (1) COPD (chronic obstructive pulmonary disease) Code(s): J44.9 - CHRONIC OBSTRUCTIVE PULMONARY DISEASE, UNSPECIFIED (2) Kyphosis Code(s): M40.209 - UNSPECIFIED KYPHOSIS, SITE UNSPECIFIED (3) Achalasia Code(s): K22.0 - ACHALASIA OF CARDIA (4) Osteoporosis Code(s): M81.0 - AGE-RELATED OSTEOPOROSIS W/O CURRENT PATHOLOGICAL FRACTURE Assessment/Plan DYSPNEA LIKELY MULTIFACTORIAL: KYPHOSIS WHICH WOULD RESULT IN REDUCED TLC AND RESTRICTIVE VENTILATORY DEFECT AND LARGE ESOPHAGEAL/GASTRIC DILATATION ABOVE THE DIAPHRAGM. DUE TO ADVANCED AGE AND DECONDITIONED STATE WOULD OPT FOR O2 TO KEEP SAT GREATER THAN 90%/BRONCHODILATORS NEEDED. Jeffery ARDON MD
--- NOTE | 2019-02-16 13:50 | EKG ---
Test Reason : Blood Pressure : / mmHG Vent. Rate : 088 BPM Atrial Rate : 088 BPM P-R Int : 114 ms QRS Dur : 086 ms QT Int : 376 ms P-R-T Axes : 033 027 001 degrees QTc Int : 454 ms POOR DATA QUALITY, INTERPRETATION MAY BE ADVERSELY AFFECTED NORMAL SINUS RHYTHM NONSPECIFIC ST ABNORMALITY LEFT ATRIAL ENLARGEMENT NO PREVIOUS ECGS AVAILABLE Confirmed by JUAN VINCENT MD ([id number]) on 02/16/2019 1:50:35 PM Referred By: Confirmed By:JUAN VINCENT MD
--- NOTE | 2019-02-16 15:17 | PN ---
Physical Exam: SUBJECTIVE: Patient seen and examined. She reports mid back pain with no current shortness of breath. Per pt's niece, she has no previous history of pulmonary problems. She has hx of hip, clavicular, and elbow fractures. She also has hx of achalasia with multiple endoscopies. She had last endoscopy about 4 years ago. Pt's OBJECTIVE: Vital Signs Period Temp Pulse Resp BP Sys/James Pulse Ox Last 24 Hr 97.5 F-99.5 F 64-90 16-20 119-168/53-79 95-100 GENERAL: The patient is awake, alert, and fully oriented, in no acute distress. Primarily Bruneian-speaking. HEAD: Normal with no signs of trauma. EYES: PERRL, extraocular movements intact, sclera anicteric, conjunctiva clear. ENT: Ears normal, nares patent, moist mucous membranes. NECK: Trachea midline LUNGS: Breath sounds equal, clear to auscultation bilaterally, no wheezes, right lower lobe mild crackles HEART: Regular rate and rhythm, 3/6 systolic murmur ABDOMEN: Soft, nontender, nondistended, normoactive bowel sounds BACK: significant kyphosis EXTREMITIES: Warm, well-perfused, no edema. NEUROLOGICAL: Cranial nerves II through XII grossly intact. Normal speech. PSYCH: Normal mood, normal affect. SKIN: Warm, dry, normal turgor Laboratory Results - last 24 hr 02/15/19 02/15/19 02/15/19 18:15 18:15 18:15 WBC 4.5 RBC 4.89 Hgb 12.9 Hct 40.7 MCV 83.2 MCH 26.4 MCHC 31.8 L RDW 17.1 H Plt Count 258 MPV 7.8 Absolute Neuts (auto) 3.5 Neutrophils % 78.3 Lymphocytes % 14.0 Monocytes % 7.1 Eosinophils % 0.2 Basophils % 0.4 Nucleated RBC % 0 Anticoagulation Therapy Puncture Site ABG pH ABG pCO2 at Pt Temp ABG pO2 at Pt Temp ABG HCO3 ABG O2 Sat (Measured) ABG O2 Content ABG Base Excess Alberto Test O2 Delivery Device Oxygen Flow Rate Vent Mode Vent Rate Mechanical Rate Pressure Support Vent Sodium 135 L Potassium 4.5 Chloride 98 Carbon Dioxide 33 H Anion Gap 5 L BUN 16.0 Creatinine 0.7 Est GFR (CKD-EPI)AfAm 101.03 Est GFR (CKD-EPI)NonAf 87.17 Random Glucose 92 Calcium 8.8 Phosphorus Magnesium 2.0 Total Bilirubin 0.1 L AST 16 ALT 23 Alkaline Phosphatase 91 Creatine Kinase 58 Troponin I < 0.02 B-Natriuretic Peptide 321.5 H Total Protein 7.7 Albumin 3.4 TSH 6.63 H Free T4 Thyroxine (T4) Stool Occult Blood 02/16/19 02/16/19 02/16/19 00:12 07:10 07:30 WBC 3.6 L RBC 4.52 Hgb 11.9 Hct 37.1 MCV 82.0 MCH 26.3 MCHC 32.0 RDW 17.0 H Plt Count 248 MPV 7.7 Absolute Neuts (auto) 1.8 Neutrophils % 48.7 D Lymphocytes % 35.1 D Monocytes % 14.3 H D Eosinophils % 1.2 D Basophils % 0.7 Nucleated RBC % 0 Anticoagulation Therapy No Result Required. Puncture Site Right radial ABG pH 7.42 ABG pCO2 at Pt Temp 53.0 H ABG pO2 at Pt Temp 57.8 L ABG HCO3 33.7 H ABG O2 Sat (Measured) 88.0 L ABG O2 Content 11.8 ABG Base Excess 8.4 H Alberto Test Positive O2 Delivery Device Room air Oxygen Flow Rate 21% Vent Mode No Result Required. Vent Rate No Result Required. Mechanical Rate No Result Required. Pressure Support Vent No Result Required. Sodium Potassium Chloride Carbon Dioxide Anion Gap BUN Creatinine Est GFR (CKD-EPI)AfAm Est GFR (CKD-EPI)NonAf Random Glucose Calcium Phosphorus Magnesium Total Bilirubin AST ALT Alkaline Phosphatase Creatine Kinase Troponin I B-Natriuretic Peptide Total Protein Albumin TSH Free T4 Thyroxine (T4) Stool Occult Blood Negative 02/16/19 07:30 WBC RBC Hgb Hct MCV MCH MCHC RDW Plt Count MPV Absolute Neuts (auto) Neutrophils % Lymphocytes % Monocytes % Eosinophils % Basophils % Nucleated RBC % Anticoagulation Therapy Puncture Site ABG pH ABG pCO2 at Pt Temp ABG pO2 at Pt Temp ABG HCO3 ABG O2 Sat (Measured) ABG O2 Content ABG Base Excess Alberto Test O2 Delivery Device Oxygen Flow Rate Vent Mode Vent Rate Mechanical Rate Pressure Support Vent Sodium 133 L Potassium 4.0 Chloride 95 L Carbon Dioxide 33 H Anion Gap 5 L BUN 11.6 Creatinine 0.4 L Est GFR (CKD-EPI)AfAm 121.45 Est GFR (CKD-EPI)NonAf 104.79 Random Glucose 82 Calcium 8.8 Phosphorus 4.3 Magnesium 2.0 Total Bilirubin 0.2 AST 15 ALT 20 Alkaline Phosphatase 86 Creatine Kinase Troponin I B-Natriuretic Peptide Total Protein 7.2 Albumin 3.2 L TSH Free T4 0.92 Thyroxine (T4) 8.2 Stool Occult Blood Active Medications Generic Name Dose Route Start Last Admin Trade Name Freq PRN Reason Stop Dose Admin Acetaminophen 1,000 mg 02/16/19 11:38 Tylenol - PO Q6H PRN PAIN LEVEL 6-10 Calcium/Vitamin D 1 tab 02/16/19 10:00 02/16/19 10:20 Oscal 250 Mg+D - PO 1 tab DAILY JACQUELINE Administration Heparin Sodium (Porcine) 5,000 unit 02/16/19 06:00 02/16/19 13:57 Heparin - SQ 5,000 unit TID JACQUELINE Administration Ibuprofen 600 mg 02/16/19 11:38 Motrin - PO Q8H PRN PAIN LEVEL 1-5 Levothyroxine Sodium 112 mcg 02/16/19 07:00 02/16/19 06:25 Synthroid - PO 112 mcg DAILY@0700 JACQUELINE Administration Lisinopril 2.5 mg 02/16/19 10:00 02/16/19 10:21 Prinivil PO 2.5 mg DAILY JACQUELINE Administration Miscellaneous 1 each 02/16/19 22:00 Lidoderm Patch Removal MC 02/16/19 22:01 DAILY@2200 ONE Morphine Sulfate 2 mg 02/16/19 00:38 Morphine Sulfate IVPUSH Q6H PRN PAIN LEVEL 7 - 10 Multivitamins/Minerals/Vitamin C 1 tab 02/16/19 10:00 02/16/19 10:21 Tab-A-Vit - PO 1 tab DAILY JACQUELINE Administration ASSESSMENT/PLAN: Ms. Zoltan Dumont is a 69 y/o female with HTN, osteoporosis, hypothyroidism, and achalasia who presents with increased thoracic pain and sudden onset shortness of breath. #multiple vertebral fractures -C7 most significant on CT -T2, T12 fractures as well -ibuprofen -tylenol -lidoderm patch -morphine PRN -PT -neurosurgery consulted- back brace #acute hypoxic respiratory failure 2/2 pain vs kyphosis -CT negative for PE, but some right base atelectasis -O2- wean off if possible, keep sat above 90 -bronchodilators if needed -pulm following #achalasia -CT shows dilated esophagus -hx so can f/u out pt #HTN -lisinopril #thyromegaly -CT finding, hx of hypothyroidism -high TSH, normal T4 and free T4 -T3 pending -synthroid DVT Ppx heparin FEN PO fluids monitor labs sodium-controlled diet dispo med/surg appreciate PT recs Visit type - Emergency Visit Emergency Visit: Yes ED Registration Date: 02/15/19 Care time: The patient presented to the Emergency Department on the above date and was hospitalized for further evaluation of their emergent condition. - New Patient This patient is new to me today: Yes Date on this admission: 02/16/19 - Critical Care Critical Care patient: No - Discharge Referral Referred to [facility] No ATTENDING PHYSICIAN STATEMENT I saw and evaluated the patient. I reviewed the resident's note and discussed the case with the resident. I agree with the resident's findings and plan as documented. SUBJECTIVE: OBJECTIVE: ASSESSMENT AND PLAN:
--- NOTE | 2019-02-16 18:11 | PN ---
Teaching Attending Note Name of Resident: Connie Ramos ATTENDING PHYSICIAN STATEMENT I saw and evaluated the patient. I reviewed the resident's note and discussed the case with the resident. I agree with the resident's findings and plan as documented. SUBJECTIVE: seen around noon time No fever or chills. paininback is controlled. no SOB. no fever . no weakness. did not try to walk yet . PT held off evaluation due to Fx OBJECTIVE: Spoke to her with help of Dr. Johnson who is fluent in portuguese NAD, cachectic. pleasant. laterally deviated R eye. MMM. AAOx3 . CV: RRR, 3/6 DM at SB. Lungs: CTAB MS: severe kyphosis. TTp over lower T spine. Abd: soft, protuberant. NT, NL BS Ext: thin, no edema , no erythema Neuro: no facial droop. R eye laterally deviated. tongue at mid line . strength 5/5 in upper and lower extremities proximally and distally. sensation to light touch nl. reflexes 2+ knee jerk and biceps b/l. ASSESSMENT AND PLAN: 69 y/o lady wit h/o Acalasia, kyphosis, HTN, osteoporosis, hypothyroidism, and other medical problems and recent visit to ER in [facility] ( left AMA ) who presented with back pain 1- T2,T9,T12, C7 compression Fxs. - no neuro compromise. - cont pain control, with lidocaine patch, tylenol and add ibuprofen - TLSo brace ordered - PT eval - dc morphine 2- dilation of the Esophagus on CT scan : per daughter she has acalasia and follows with GI, and had recent EGD . - will have her f/u with her GI as out pt . currently no GI sx. per hx occasional vomiting is her base line 3- HTn: cont lisinopril 4- Hypothyroidism: will confirm her meds . cont current synthorid dose . TSH noted. out pt f/u - thyroid enlargement on CT scan . out pt US and follow up 5- Desaturation in ER: not clear of etiology, no PE, or infiltrate. could be due to restrictive etiology form kphosis. will taper her O2 down. -order pre-post Meds were not able to be confirmed . will try again dispo depends on PT eval to determine location
[2019-02-16] MEDS ORDERED: LIDOCAINE PATCH REMOVAL MC ONE (22:00)
[2019-02-17] MEDS: HEPARIN NA (PORCINE) 5,000 UNITS/ML 1ML VIAL SQ SCH ×3 (06:57→22:25)
[2019-02-17] MEDS: LEVOTHYROXINE NA 112 MCG TABLET (FP) PO SCH (06:57)
[2019-02-17 08:24] LABS: HEMATOCRIT 36.4 % (32.4-45.2); HEMOGLOBIN 11.9 GM/dL (10.7-15.3); MCH 26.9 pg (25.7-33.7); MCHC 32.8 g/dl (32.0-36.0); MEAN CELL VOLUME 82.1 fl (80-96); MEAN PLT VOLUME 7.3 fl (7.5-11.1); PLATELET COUNT 228 K/MM3 (134-434); RBC 4.43 M/mm3 (3.60-5.2); RDW 17.1 % (11.6-15.6); WHITE BLOOD COUNT 3.4 K/mm3 (4.0-10.0)
[2019-02-17 08:47] LABS: CALCIUM 8.9 mg/dL (8.5-10.1); CREATININE 0.4 mg/dL (0.55-1.3)
[2019-02-17] MEDS ORDERED: PT OWN MED DRAWER 7, Y5N ONE (10:11)
--- NOTE | 2019-02-17 10:18 | PN ---
Progress Note (short form) - Note Progress Note: NEUROSURGERY h/o HTN, osteoporosis, hypothyroid, achalasia c/o mid back pain and shortness of breath since 01/25 and have been progressively worsening. Denies any injuries /falls or strenous activity. Was at [facility] being treated but still with pain so left AMA. While pt was home, she was having increasing back pain and shortness of breath. No incontinence. Pain better somewhat today PE: General- thin, kyphotic CN- Mild OD medial gaze lag, no ptosis; Motor- 4+-5 B UE/LE; Sensation- intact LT; DTR- 2+ Pain lower T spine CT of spine- osteopenia, marked T12 compression fx with minimal retropulsion, mild T9 > T10 compression deformity, mild T2 fx, moderate C7 compression fx; no marked canal stenosis at any level Medical management of osteoporosis Surgucal intervention not recommended for multifocal osteoporotic fx TLSO brace for T12 fx; Pt agrees to try Pain management to consider kyphoplasty/vertebroplasty for T12 if persistent pain
[2019-02-17] MEDS: MULTIVITAMINS (DAILY MVI) TABLET (FP) PO SCH (10:24)
[2019-02-17] MEDS: CALCIUM 250MG/VIT-D 125 UNITS 1 COMBO TABLET PO SCH (10:25)
[2019-02-17] MEDS: LISINOPRIL 5 MG TABLET (FP) PO SCH (10:25)
--- NOTE | 2019-02-17 15:00 | PN ---
Teaching Attending Note Name of Resident: Connie Ramos ATTENDING PHYSICIAN STATEMENT I saw and evaluated the patient. I reviewed the resident's note and discussed the case with the resident. I agree with the resident's findings and plan as documented. SUBJECTIVE: No fever or chills. No BUTLER. back pain in lower thoracic area is better . no SOB OBJECTIVE: NAD, cachectic. pleasant. laterally deviated R eye. MMM. AAOx3 . CV: RRR, 3/6 DM at LUSB. Lungs: CTAB MS: severe kyphosis. TTp over lower T spine. Abd: soft, protuberant. NT, NL BS Ext: thin, no edema , no erythema Neuro: . strength 5/5 in upper and lower extremities proximally and distally. reflexes 2+ knee jerk and biceps b/l. ASSESSMENT AND PLAN: 69 y/o lady wit h/o Acalasia, kyphosis, HTN, osteoporosis, hypothyroidism, and other medical problems and recent visit to ER in [facility] ( left AMA ) who presented with back pain 1- T2,T9,T12, C7 compression Fxs. - neuro exam still non focal - cont pain control, with lidocaine patch, tylenol and ibuprofen - TLSo brace 2- Dilation of the Esophagus on CT scan: h/o acalasia - will have her f/u with her GI as out pt . 3- HTN: cont lisinopril 4- Hypothyroidism: unable to confirm her meds yet. cont current synthorid dose. TSH noted. out pt f/u. - thyroid enlargement on CT scan . out pt US and follow up 5- Hypoxia in ER . resolved. unknown cause. restrictive etiology might be contributing Pre-Post ambulatory pulse ox with no need for O2. Monitor PT eval indicates need fro rehab. Will notify [facility] znd will d/w patient and family
--- NOTE | 2019-02-17 15:05 | PN ---
Physical Exam: SUBJECTIVE: Patient seen and examined. Pt reports improved thoracic back pain. She denies chest pain, shortness of breath. She is tolerating diet well. OBJECTIVE: Vital Signs Period Temp Pulse Resp BP Sys/James Pulse Ox Last 24 Hr 97.8 F-98.0 F 66-101 20-20 117-130/65-67 93-95 GENERAL: The patient is awake, alert, and fully oriented, in no acute distress. Primarily [place]inamese-speaking. HEAD: Normal with no signs of trauma. EYES: PERRL, extraocular movements intact, conjunctiva clear. ENT: Ears normal, nares patent, moist mucous membranes. NECK: Trachea midline LUNGS: Breath sounds equal, clear to auscultation bilaterally, no wheezes or crackles HEART: Regular rate and rhythm, 3/6 systolic murmur ABDOMEN: Soft, nontender, nondistended, normoactive bowel sounds BACK: significant kyphosis EXTREMITIES: Warm, well-perfused, no edema. NEUROLOGICAL: Cranial nerves II through XII grossly intact. Normal speech. PSYCH: Normal mood, normal affect. SKIN: Warm, dry, normal turgor Laboratory Results - last 24 hr 02/17/19 02/17/19 07:53 07:53 WBC 3.4 L RBC 4.43 Hgb 11.9 Hct 36.4 MCV 82.1 MCH 26.9 MCHC 32.8 RDW 17.1 H Plt Count 228 MPV 7.3 L Sodium 131 L Potassium 4.0 Chloride 94 L Carbon Dioxide 33 H Anion Gap 5 L BUN 13.0 Creatinine 0.4 L Est GFR (CKD-EPI)AfAm 121.45 Est GFR (CKD-EPI)NonAf 104.79 Random Glucose 97 Calcium 8.9 Active Medications Generic Name Dose Route Start Last Admin Trade Name Freq PRN Reason Stop Dose Admin Acetaminophen 1,000 mg 02/16/19 11:38 Tylenol - PO Q6H PRN PAIN LEVEL 6-10 Calcium/Vitamin D 1 tab 02/16/19 10:00 02/17/19 10:25 Oscal 250 Mg+D - PO 1 tab DAILY JACQUELINE Administration Heparin Sodium (Porcine) 5,000 unit 02/16/19 06:00 02/17/19 06:57 Heparin - SQ 5,000 unit TID JACQUELINE Administration Ibuprofen 600 mg 02/16/19 11:38 01/10/20 15:38 Motrin - PO 600 mg Q8H PRN Administration PAIN LEVEL 1-5 Levothyroxine Sodium 112 mcg 02/16/19 07:00 02/17/19 06:57 Synthroid - PO 112 mcg DAILY@0700 JACQUELINE Administration Lisinopril 2.5 mg 02/16/19 10:00 02/17/19 10:25 Prinivil PO 2.5 mg DAILY JACQUELINE Administration Multivitamins/Minerals/Vitamin C 1 tab 02/16/19 10:00 02/17/19 10:24 Tab-A-Vit - PO 1 tab DAILY JACQUELINE Administration ASSESSMENT/PLAN: Ms. Zoltan Dumont is a 69 y/o female with HTN, osteoporosis, hypothyroidism, and achalasia who presents with increased thoracic pain and sudden onset shortness of breath. #multiple vertebral fractures -C7 most significant on CT -T2, T12 fractures as well -ibuprofen 600mg Q8H -tylenol 1,000mg Q6H PRN -lidoderm patch (up to 2 may be applied at once) -PT -neurosurgery consulted- back brace applied #acute hypoxic respiratory failure 2/2 pain vs kyphosis -CT negative for PE, but some right base atelectasis -O2- 1L at rest, 2L after exercise needed -bronchodilators if needed -pulm following #achalasia -CT shows dilated esophagus -omeprazole 40mg daily -hx so can f/u out pt #HTN -lisinopril 2.5mg daily #thyromegaly -CT finding, hx of hypothyroidism -high TSH, normal T4 and free T4 -T3 pending -synthroid #allergies -loratidine 10mg daily DVT Ppx heparin FEN PO fluids monitor labs sodium-controlled diet dispo med/surg Pt amenable to SNF. Pt previously was at [address] family would like to try for there. Visit type - Emergency Visit Emergency Visit: Yes ED Registration Date: 02/15/19 Care time: The patient presented to the Emergency Department on the above date and was hospitalized for further evaluation of their emergent condition. - New Patient This patient is new to me today: No - Critical Care Critical Care patient: No - Discharge Referral Referred to [facility] No ATTENDING PHYSICIAN STATEMENT I saw and evaluated the patient. I reviewed the resident's note and discussed the case with the resident. I agree with the resident's findings and plan as documented. SUBJECTIVE: OBJECTIVE: ASSESSMENT AND PLAN:
[2019-02-17] MEDS: LORATADINE 10 MG TABLET PO SCH (15:45)
[2019-02-17] MEDS: PANTOPRAZOLE 40 MG TABLET (FP) PO SCH (15:45)
[2019-02-18] MEDS: HEPARIN NA (PORCINE) 5,000 UNITS/ML 1ML VIAL SQ SCH ×3 (06:18→21:25)
[2019-02-18] MEDS: LEVOTHYROXINE NA 112 MCG TABLET (FP) PO SCH (06:18)
[2019-02-18 08:01] LABS: BASO % 0.4 % (0-2.0); EOS % 1.4 % (0-4.5); HEMATOCRIT 36.9 % (32.4-45.2); HEMOGLOBIN 11.9 GM/dL (10.7-15.3); MCH 26.7 pg (25.7-33.7); MCHC 32.3 g/dl (32.0-36.0); MEAN CELL VOLUME 82.5 fl (80-96); MEAN PLT VOLUME 7.2 fl (7.5-11.1); MONO % 14.2 % (3.8-10.2); PLATELET COUNT 243 K/MM3 (134-434); RBC 4.47 M/mm3 (3.60-5.2); RDW 16.9 % (11.6-15.6); WHITE BLOOD COUNT 3.2 K/mm3 (4.0-10.0)
[2019-02-18 08:05] LABS: BLOOD UREA NITROGEN 14.4 mg/dL (7-18); CALCIUM 8.7 mg/dL (8.5-10.1); CREATININE 0.4 mg/dL (0.55-1.3); POTASSIUM 4.2 mmol/L (3.5-5.1)
--- NOTE | 2019-02-18 09:29 | PN ---
Progress Note (short form) - Note Progress Note: NEUROSURGERY Pain better today Sitting up in chair Mild constipation on bowel regimen PE: General- thin, kyphotic CN- Mild OD medial gaze lag, no ptosis; Motor- 4+-5 B UE/LE; Sensation- intact LT; DTR- 2+ CT of spine- osteopenia, marked T12 compression fx with minimal retropulsion, mild T9 > T10 compression deformity, mild T2 fx, moderate C7 compression fx; no marked canal stenosis at any level jail medical management of osteoporosis Surgical intervention not recommended for multifocal osteoporotic fx Consider use of TLSO brace for T12 fx when OOB Outpatient pain management eval to consider kyphoplasty/vertebroplasty for T12 if persistent pain Short term rehab may be beneficial
[2019-02-18] MEDS ORDERED: PT OWN MED DRAWER 7, Y5N ONE (09:52)
[2019-02-18] MEDS: LISINOPRIL 5 MG TABLET (FP) PO SCH (11:16)
[2019-02-18] MEDS: MULTIVITAMINS (DAILY MVI) TABLET (FP) PO SCH (11:16)
[2019-02-18] MEDS: LORATADINE 10 MG TABLET PO SCH (11:17)
[2019-02-18] MEDS: CALCIUM 250MG/VIT-D 125 UNITS 1 COMBO TABLET PO SCH (11:17)
[2019-02-18] MEDS: PANTOPRAZOLE 40 MG TABLET (FP) PO SCH (11:17)
--- NOTE | 2019-02-18 18:16 | PN ---
Progress Note (short form) - Note Progress Note: Subjective: Minimal pain in lower thoracic spine. no weakness , numbness or tingling. she has no SOB or CP Objective: Vital Signs: Last Vital Signs Temp Pulse Resp BP Pulse Ox 98.2 F 77 20 121/71 93 L 02/18/19 16:30 02/18/19 16:30 02/18/19 16:30 02/18/19 16:30 02/17/19 13:57 Laboratory Results - last 24 hr 02/18/19 02/18/19 07:23 07:23 WBC 3.2 L RBC 4.47 Hgb 11.9 Hct 36.9 MCV 82.5 MCH 26.7 MCHC 32.3 RDW 16.9 H Plt Count 243 MPV 7.2 L Absolute Neuts (auto) 1.4 L Neutrophils % 44.0 Lymphocytes % 40.0 Monocytes % 14.2 H Eosinophils % 1.4 Basophils % 0.4 Nucleated RBC % 0 Sodium 129 L Potassium 4.2 Chloride 94 L Carbon Dioxide 32 Anion Gap 3 L BUN 14.4 Creatinine 0.4 L Est GFR (CKD-EPI)AfAm 121.45 Est GFR (CKD-EPI)NonAf 104.79 Random Glucose 101 Calcium 8.7 Physical Exam: NAD, cachectic. pleasant. laterally deviated R eye. MMM. CV: RRR, 3/6 DM at LUSB. Lungs: CTAB MS: severe kyphosis. Ext: thin, no edema , no erythema Neuro: . strength 5/5 in upper and lower extremities proximally and distally. reflexes 2+ knee jerk and biceps b/l. ASSESSMENT AND PLAN: 69 y/o lady wit h/o Acalasia, kyphosis, HTN, osteoporosis, hypothyroidism, and other medical problems and recent visit to ER in [facility] ( left AMA ) who presented with back pain 1- T2,T9,T12, C7 compression Fxs. - Neuro exam still non focal today - cont pain control, with lidocaine patch, tylenol and ibuprofen - TLSo brace 2- Dilation of the Esophagus on CT scan: h/o acalasia - will have her f/u with her GI as out pt . 3- HTN: cont lisinopril 4- Hypothyroidism: - thyroid enlargement on CT scan . out pt US and follow up - cont synthroid 5- Hypoxia in ER . resolved. unknown cause. restrictive etiology might be contributing Pre-Post ambulatory pulse ox with no need for O2. Monitor will need rehab. d/w family at bedside. patient is medically ready Visit type - Emergency Visit Emergency Visit: Yes ED Registration Date: 02/15/19 Care time: The patient presented to the Emergency Department on the above date and was hospitalized for further evaluation of their emergent condition. - New Patient This patient is new to me today: No - Critical Care Critical Care patient: No
[2019-02-19] MEDS: HEPARIN NA (PORCINE) 5,000 UNITS/ML 1ML VIAL SQ SCH ×2 (06:47→14:18)
[2019-02-19] MEDS: LEVOTHYROXINE NA 112 MCG TABLET (FP) PO SCH (06:47)
[2019-02-19] MEDS ORDERED: PT OWN MED DRAWER 7, Y5N ONE (10:15)
[2019-02-19] MEDS: CALCIUM 250MG/VIT-D 125 UNITS 1 COMBO TABLET PO SCH (10:20)
[2019-02-19] MEDS: PANTOPRAZOLE 40 MG TABLET (FP) PO SCH (10:20)
[2019-02-19] MEDS: LISINOPRIL 5 MG TABLET (FP) PO SCH (10:20)
[2019-02-19] MEDS: MULTIVITAMINS (DAILY MVI) TABLET (FP) PO SCH (10:20)
[2019-02-19] MEDS: LORATADINE 10 MG TABLET PO SCH (10:20)
[2019-02-19 13:12] LABS: BLOOD UREA NITROGEN 18.8 mg/dL (7-18); CREATININE 0.4 mg/dL (0.55-1.3); POTASSIUM 4.5 mmol/L (3.5-5.1)
[2019-02-19 16:01] VITALS: PULSE 97
--- NOTE | 2019-02-19 16:31 | DS ---
Physical Exam: SUBJECTIVE: Patient seen and examined OBJECTIVE: Vital Signs Period Temp Pulse Resp BP Sys/James Pulse Ox Last 24 Hr 98.1 F-98.5 F 72-97 20-20 97-128/55-63 98-98 PHYSICAL EXAM GENERAL: The patient is awake, alert, and fully oriented, in no acute distress. HEAD: Normal with no signs of trauma. EYES: PERRL, extraocular movements intact, sclera anicteric, conjunctiva clear. ENT: Ears normal, nares patent, oropharynx clear without exudates, moist mucous membranes. NECK: Trachea midline, full range of motion, supple. LUNGS: Breath sounds equal, clear to auscultation bilaterally, no wheezes, no crackles, no accessory muscle use. HEART: Regular rate and rhythm, S1, S2 without murmur, rub or gallop. ABDOMEN: Soft, nontender, nondistended, normoactive bowel sounds, no guarding, no rebound, no hepatosplenomegaly, no masses. EXTREMITIES: 2+ pulses, warm, well-perfused, no edema. NEUROLOGICAL: Cranial nerves II through XII grossly intact. Normal speech, gait not observed. PSYCH: Normal mood, normal affect. SKIN: Warm, dry, normal turgor, no rashes or lesions noted. LABS Laboratory Results - last 24 hr 02/19/19 12:05 Sodium 131 L Potassium 4.5 Chloride 94 L Carbon Dioxide 32 Anion Gap 5 L BUN 18.8 H Creatinine 0.4 L Est GFR (CKD-EPI)AfAm 121.45 Est GFR (CKD-EPI)NonAf 104.79 Random Glucose 112 H Calcium 9.0 HOSPITAL COURSE: Date of Admission:02/15/19 Date of Discharge: 02/19/19 Discharge Summary Reason For Visit: COMPRESSION FRACTURE, SHORTNESS OF BREATH Current Active Problems Vertebral fracture (Acute) Achalasia (Chronic) COPD (chronic obstructive pulmonary disease) (Chronic) Kyphosis (Chronic) Osteoporosis (Chronic) Condition: Improved - Instructions Diet, Activity, Other Instructions: YOUR VISIT You were admitted to the hospital for back pain and difficulty breathing. You were found to have fractures in the bones of your spine. You were given a brace for support and given oxygen to help you breath better. While here you were seen by neurosurgery. You are now able to go to a long term facility to continue your care. MEDICATIONS Please continue to take your medications as prescribed. Be sure to wear your TLSo brace when moving from the bed to your activities for pain relief and comfort. ADDITIONAL CARE Please make an appointment to see your primary care provider, Dr. Mccormack, 1 week from today. Please make an appointment to see a neruosurgeon in 1 week. A referral has to Dr. Ortez has been provided. Please make an appointment to see a inspector bicycle in 2 week. A referral has to Dr. Morris has been provided. For further care of esophagus concern, please follow up with your cullet washer. While here it was found that you have an enlarged thyroid and for further care, please follow up with an game advisor. A referral to Dr. Perry has been provided. ADDITIONAL INFORMATION Please call 911 or come directly to the emergency department if you experience unusual headache, vision change, shortness of breath, chest pain, numbness, tingling, loss of alertness/awareness, loss of function, unusual bleeding or any alarming symptoms. You need blood work repeated in 1 week ( BMP, CBC, and TSH) If your white blood cells remain low , you need referral to a blood doctor ( swimming pool installer and servicer ) for a complete work up. For the lidocaine patch , apply for 12 hours and remove for 12 hours Referrals: Melodie Mccormack MD [Primary Care Provider] - 1 Week Yasmani Morris MD [Staff Physician] - 2 Weeks Al Ortez MD [Staff Physician] - 1 Week Vasquez Perry MD [Staff Physician] - 2 Weeks Disposition: [facility] FAC[facility] - Home Medications Comprehensive Discharge Medication List: Ambulatory Orders Alendronate Sodium 35 mg PO WEEKLY 02/16/19 Levothyroxine [Synthroid -] 112 mcg PO DAILY 02/16/19 Lisinopril [Zestril] 2.5 mg PO DAILY 02/16/19 Loratadine 10 mg PO DAILY 02/16/19 Omeprazole 40 mg PO DAILY 02/16/19 Acetaminophen [Tylenol] 650 mg PO Q6H PRN #30 capsule 02/19/19 Calcium 250Mg/Vit-D 125 Units [Oscal 250 mg+D -] 1 tab PO DAILY tab 02/19/19 Lidocaine 5% Patch [Lidoderm -] 1 patch TP DAILY #30 patch 02/19/19 - Discharge Referral Referred to [facility] No ATTENDING PHYSICIAN STATEMENT I saw and evaluated the patient. I reviewed the resident's note and discussed the case with the resident. I agree with the resident's findings and plan as documented. SUBJECTIVE: OBJECTIVE: ASSESSMENT AND PLAN:
[2019-02-19 18:47] VITALS: BP 103/57; TEMP 98.7
--- NOTE | 2019-02-19 19:56 | PN ---
Teaching Attending Note Name of Resident: Lawson Ortiz ATTENDING PHYSICIAN STATEMENT I saw and evaluated the patient. I reviewed the resident's note and discussed the case with the resident. I agree with the resident's findings and plan as documented. SUBJECTIVE: No fever or chills. improved back pain . no weakness or urinary/fecal incontinence OBJECTIVE: NAD, cachectic. pleasant. laterally deviated R eye. MMM. CV: RRR, 3/6 DM at LUSB. Lungs: CTAB MS: severe kyphosis. Ext: thin, no edema , no erythema Neuro: Strength 5/5 in upper and lower extremities proximally and distally. reflexes 2+ knee jerk and biceps b/l. ASSESSMENT AND PLAN: 69 y/o lady wit h/o Acalasia, kyphosis, HTN, osteoporosis, hypothyroidism, and other medical problems and recent visit to ER in [facility] ( left AMA ) who presented with back pain 1- T2,T9,T12, C7 compression Fxs. - cont pain control, with lidocaine patch, tylenol after dc - TLSo brace when out of bed 2- Dilation of the Esophagus on CT scan: h/o acalasia - will have her f/u with her GI as out pt . 3- HTN: cont lisinopril 4- Hypothyroidism: - thyroid enlargement on CT scan . out pt US and follow up - cont synthroid 5- Hypoxia in ER . resolved. unknown cause. restrictive etiology might be contributing Pre-Post ambulatory pulse ox with no need for O2. dc to rehab
== END 2019-02-19 20:06 | DRG 542 ==
LOC: JER 16:58 → JERBED 20:58 → J5S 02-16 00:52
PROVIDERS: ADMIT Internal Medicine; ATTEND Internal Medicine
DX: M80.88XA Other osteoporosis with current pathological fracture, vertebra(e), initial encounter for fracture (principal); J96.01 Acute respiratory failure with hypoxia; J98.11 Atelectasis; R64 Cachexia; Z68.1 Body mass index [BMI] 19.9 or less, adult; M54.9 Dorsalgia, unspecified; I10 Essential (primary) hypertension; E07.9 Disorder of thyroid, unspecified; M40.209 Unspecified kyphosis, site unspecified; E03.9 Hypothyroidism, unspecified; K22.0 Achalasia of cardia; M85.88 Other specified disorders of bone density and structure, other site; J44.9 Chronic obstructive pulmonary disease, unspecified; K22.8 Other specified diseases of esophagus; R09.02 Hypoxemia
CPT/HCPCS: 36415; 36600; 70450-TC; 71045-TC-FY; 71275-TC; 72125-TC; 72128-TC; 72131-TC; 80048; 80053; 82272; 82550; 82803; 83735; 83880; 84100; 84436; 84439; 84443; 84484; 85025; 85027; 93005; 93010; 94010; 94761; 97116-GP; 97162-GP; 99283-25; J1644; Q9967

== ENCOUNTER 2020-03-19 14:30 | Inpatient (IN) | payer OTHER ==
[2020-03-19 16:56] LABS: BASO % 0.2 % (0-2.0); HEMATOCRIT 45.5 % (32.4-45.2); HEMOGLOBIN 14.4 GM/dL (10.7-15.3); LYMPH % 4.5 % (8-40); MCH 25.9 pg (25.7-33.7); MCHC 31.5 g/dl (32.0-36.0); MEAN CELL VOLUME 82.1 fl (80-96); MEAN PLT VOLUME 7.8 fl (7.5-11.1); MONO % 3.8 % (3.8-10.2); NEUT % 91.5 % (42.8-82.8); PLATELET COUNT 241 K/MM3 (134-434); RBC 5.55 M/mm3 (3.60-5.2); RDW 16.7 % (11.6-15.6); WHITE BLOOD COUNT 6.4 K/mm3 (4.0-10.0)
[2020-03-19 17:24] LABS: POTASSIUM 5.1 mmol/L (3.5-5.1)
[2020-03-19 17:26] LABS: ALBUMIN 3.3 g/dl (3.4-5.0); CALCIUM 8.7 mg/dL (8.5-10.1)
[2020-03-19 17:27] LABS: BLOOD UREA NITROGEN 17.1 mg/dL (7-18); MAGNESIUM 2.2 mg/dL (1.8-2.4)
[2020-03-19 17:29] LABS: CREATININE 0.4 mg/dL (0.55-1.3)
[2020-03-19 17:31] LABS: BILIRUBIN,TOTAL 0.6 mg/dL (0.2-1); TOT PROT 6.9 g/dl (6.4-8.2)
[2020-03-19 17:35] LABS: N-TERMINAL BNP 6092.4 pg/ml (5-125)
[2020-03-19 17:57] LABS: ANISOCYTOSIS 2+; MACROCYTOSIS 0; OVALOCYTE 1+; PLATELET ESTIMATE NORMAL
[2020-03-19] MEDS ORDERED: FUROSEMIDE 40 MG/4 ML INJECTABLE VIAL IVPUSH ONE (18:46)
[2020-03-19] MEDS ORDERED: FUROSEMIDE 40 MG/4 ML INJECTABLE VIAL ONE (19:15)
[2020-03-20 07:34] LABS: HEMATOCRIT 42.5 % (32.4-45.2); HEMOGLOBIN 13.6 GM/dL (10.7-15.3); MCH 26.2 pg (25.7-33.7); MEAN CELL VOLUME 81.8 fl (80-96); MEAN PLT VOLUME 7.5 fl (7.5-11.1); PLATELET COUNT 211 K/MM3 (134-434); RBC 5.19 M/mm3 (3.60-5.2); RDW 16.6 % (11.6-15.6); WHITE BLOOD COUNT 5.4 K/mm3 (4.0-10.0)
[2020-03-20 07:50] LABS: POTASSIUM 4.2 mmol/L (3.5-5.1)
[2020-03-20 07:55] LABS: BLOOD UREA NITROGEN 12.6 mg/dL (7-18); CALCIUM 8.4 mg/dL (8.5-10.1)
[2020-03-20 07:58] LABS: CREATININE 0.4 mg/dL (0.55-1.3)
[2020-03-20 07:59] LABS: BILIRUBIN,TOTAL 0.6 mg/dL (0.2-1); TOT PROT 6.2 g/dl (6.4-8.2)
[2020-03-20] MEDS: ENOXAPARIN NA (PORCINE) 40 MG/0.4 ML DISP.SYRIN SQ SCH (09:45)
[2020-03-20] MEDS: FUROSEMIDE 40 MG/4 ML INJECTABLE VIAL IVPUSH SCH (09:45)
[2020-03-20 13:57] VITALS: BMI 17.4
[2020-03-20] MEDS ORDERED: ALBUTEROL SO4 HFA INHALER IH PRN ×2 (14:29→14:48)
[2020-03-20] MEDS: ALBUTEROL SO4 0.083% IH SOL 2.5 MG/3 ML VIAL.NEB. NEB SCH ×3 (15:11→20:40)
[2020-03-20] MEDS ORDERED: predniSONE 20 MG TABLET (UD) PO SCH (22:00)
[2020-03-21] MEDS: LEVOTHYROXINE NA 112 MCG TABLET (FP) PO SCH (06:46)
[2020-03-21] MEDS: ALBUTEROL SO4 0.083% IH SOL 2.5 MG/3 ML VIAL.NEB. NEB SCH ×4 (07:56→20:24)
[2020-03-21 08:06] LABS: BASO % 0.2 % (0-2.0); EOS % 0.7 % (0-4.5); HEMATOCRIT 38.1 % (32.4-45.2); HEMOGLOBIN 12.2 GM/dL (10.7-15.3); LYMPH % 22.1 % (8-40); MCH 26.3 pg (25.7-33.7); MEAN CELL VOLUME 82.4 fl (80-96); MEAN PLT VOLUME 7.7 fl (7.5-11.1); MONO % 15.7 % (3.8-10.2); NEUT % 61.3 % (42.8-82.8); PLATELET COUNT 194 K/MM3 (134-434); RBC 4.63 M/mm3 (3.60-5.2); RDW 16.7 % (11.6-15.6); WHITE BLOOD COUNT 4.1 K/mm3 (4.0-10.0)
[2020-03-21 08:34] LABS: POTASSIUM 4.2 mmol/L (3.5-5.1)
[2020-03-21 09:11] LABS: BILIRUBIN,TOTAL 0.6 mg/dL (0.2-1)
[2020-03-21 09:12] LABS: ALBUMIN 2.8 g/dl (3.4-5.0); BLOOD UREA NITROGEN 17.8 mg/dL (7-18)
[2020-03-21 09:15] LABS: CALCIUM 8.4 mg/dL (8.5-10.1); CREATININE 0.5 mg/dL (0.55-1.3); MAGNESIUM 2.2 mg/dL (1.8-2.4)
[2020-03-21 09:16] LABS: PHOSPHOROUS 3.9 mg/dL (2.5-4.9)
[2020-03-21] MEDS: FUROSEMIDE 40 MG/4 ML INJECTABLE VIAL IVPUSH SCH (11:42)
[2020-03-21] MEDS: LORATADINE 10 MG TABLET PO SCH (11:42)
[2020-03-21] MEDS: ENOXAPARIN NA (PORCINE) 40 MG/0.4 ML DISP.SYRIN SQ SCH (11:42)
[2020-03-21] MEDS ORDERED: PT OWN MED DRAWER 7, Y5N ONE (18:48)
[2020-03-22] MEDS: LEVOTHYROXINE NA 112 MCG TABLET (FP) PO SCH (06:12)
[2020-03-22] MEDS: ALBUTEROL SO4 0.083% IH SOL 2.5 MG/3 ML VIAL.NEB. NEB SCH ×3 (07:30→15:19)
[2020-03-22 07:45] LABS: BASO % 0.5 % (0-2.0); EOS % 0.5 % (0-4.5); HEMATOCRIT 40.5 % (32.4-45.2); HEMOGLOBIN 12.9 GM/dL (10.7-15.3); LYMPH % 21.3 % (8-40); MCH 26.1 pg (25.7-33.7); MCHC 31.7 g/dl (32.0-36.0); MEAN CELL VOLUME 82.2 fl (80-96); MEAN PLT VOLUME 7.4 fl (7.5-11.1); MONO % 15.1 % (3.8-10.2); NEUT % 62.6 % (42.8-82.8); PLATELET COUNT 194 K/MM3 (134-434); RBC 4.93 M/mm3 (3.60-5.2); RDW 16.9 % (11.6-15.6); WHITE BLOOD COUNT 4.5 K/mm3 (4.0-10.0)
[2020-03-22 08:16] LABS: POTASSIUM 4.5 mmol/L (3.5-5.1)
[2020-03-22 08:32] LABS: ALBUMIN 2.9 g/dl (3.4-5.0); BLOOD UREA NITROGEN 21.3 mg/dL (7-18); CALCIUM 9.1 mg/dL (8.5-10.1); CREATININE 0.5 mg/dL (0.55-1.3); MAGNESIUM 2.1 mg/dL (1.8-2.4)
[2020-03-22 08:35] LABS: PHOSPHOROUS 4.5 mg/dL (2.5-4.9)
[2020-03-22 08:36] LABS: BILIRUBIN,TOTAL 0.6 mg/dL (0.2-1)
[2020-03-22] MEDS: LORATADINE 10 MG TABLET PO SCH (09:58)
[2020-03-22] MEDS: ENOXAPARIN NA (PORCINE) 40 MG/0.4 ML DISP.SYRIN SQ SCH (09:58)
[2020-03-22] MEDS ORDERED: MULTIVITAMINS (DAILY MVI) TABLET (FP) PO SCH (10:00)
[2020-03-22] MEDS ORDERED: TORSEMIDE 20 MG TABLET (FP) PO SCH (10:45)
[2020-03-22 14:56] VITALS: BP 103/71; PULSE 88; TEMP 98
== END 2020-03-22 18:21 | disposition home or self-care (01) | DRG 291 ==
LOC: JER 14:30 → JERBED 19:13 → J4W 03-20 01:44
PROVIDERS: ADMIT Internal Medicine; ATTEND Internal Medicine
DX: I11.0 Hypertensive heart disease with heart failure (principal); J96.01 Acute respiratory failure with hypoxia; E46 Unspecified protein-calorie malnutrition; Z68.1 Body mass index [BMI] 19.9 or less, adult; R64 Cachexia; I50.811 Acute right heart failure; J44.9 Chronic obstructive pulmonary disease, unspecified; E03.9 Hypothyroidism, unspecified; I27.20 Pulmonary hypertension, unspecified; M81.0 Age-related osteoporosis without current pathological fracture; F79 Unspecified intellectual disabilities; I37.1 Nonrheumatic pulmonary valve insufficiency; K22.0 Achalasia of cardia
CPT/HCPCS: 36415; 71045-TC-FY; 80053; 82550; 83735; 83880; 84100; 84484; 85025; 85027; 93005; 93010; 93970-TC; 94640; 99285-25; C9803; U0003

== ENCOUNTER 2020-04-11 10:52 | Inpatient (IN) | payer OTHER ==
[2020-04-11 13:43] LABS: CALCIUM 8.9 mg/dL (8.5-10.1)
[2020-04-11 13:44] LABS: ALBUMIN 3.1 g/dl (3.4-5.0); MAGNESIUM 2.1 mg/dL (1.8-2.4)
[2020-04-11 13:46] LABS: POTASSIUM 7.4 mmol/L (3.5-5.1)
[2020-04-11 13:47] LABS: CREATININE 0.5 mg/dL (0.55-1.3)
[2020-04-11 13:48] LABS: BILIRUBIN,TOTAL 0.6 mg/dL (0.2-1); TOT PROT 7.2 g/dl (6.4-8.2)
[2020-04-11 13:49] LABS: HEMATOCRIT 42.8 % (32.4-45.2); HEMOGLOBIN 13.7 GM/dL (10.7-15.3); MCH 26.3 pg (25.7-33.7); MEAN CELL VOLUME 82.3 fl (80-96); MEAN PLT VOLUME 8.2 fl (7.5-11.1); PLATELET COUNT 169 K/MM3 (134-434); RDW 18.7 % (11.6-15.6)
[2020-04-11 13:50] LABS: ADD RBC MORPHOLOGY YES; WHITE BLOOD COUNT 4.7 K/mm3 (4.0-10.0)
[2020-04-11 13:52] LABS: N-TERMINAL BNP 1484.4 pg/ml (5-125)
[2020-04-11 14:34] LABS: POTASSIUM 4.1 mmol/L (3.5-5.1)
[2020-04-11 14:35] LABS: ANISOCYTOSIS 0; MACROCYTOSIS 0; PLATELET ESTIMATE NORMAL
[2020-04-11 14:36] LABS: CALCIUM 8.8 mg/dL (8.5-10.1)
[2020-04-11 14:37] LABS: ALBUMIN 3.1 g/dl (3.4-5.0); BLOOD UREA NITROGEN 16.3 mg/dL (7-18)
[2020-04-11 14:40] LABS: CREATININE 0.4 mg/dL (0.55-1.3)
[2020-04-11 14:42] LABS: BILIRUBIN,TOTAL 0.5 mg/dL (0.2-1); TOT PROT 6.6 g/dl (6.4-8.2)
[2020-04-11] MEDS ORDERED: FUROSEMIDE 40 MG/4 ML INJECTABLE VIAL IVPUSH ONE (23:13)
[2020-04-11] MEDS ORDERED: FUROSEMIDE 40 MG/4 ML INJECTABLE VIAL ONE (23:56)
[2020-04-12] MEDS ORDERED: SODIUM CHLORIDE NASAL SPRAY 44 ML BOTTLE NS PRN (02:03)
[2020-04-12 05:32] LABS: HEMATOCRIT 38.9 % (32.4-45.2); HEMOGLOBIN 12.6 GM/dL (10.7-15.3); MCH 26.6 pg (25.7-33.7); MCHC 32.4 g/dl (32.0-36.0); MEAN CELL VOLUME 82.1 fl (80-96); MEAN PLT VOLUME 7.8 fl (7.5-11.1); PLATELET COUNT 168 K/MM3 (134-434); RBC 4.74 M/mm3 (3.60-5.2); RDW 18.5 % (11.6-15.6); WHITE BLOOD COUNT 3.3 K/mm3 (4.0-10.0)
[2020-04-12 06:02] LABS: POTASSIUM 3.3 mmol/L (3.5-5.1)
[2020-04-12 06:04] LABS: ALBUMIN 3.2 g/dl (3.4-5.0); CALCIUM 8.7 mg/dL (8.5-10.1); MAGNESIUM 2.2 mg/dL (1.8-2.4)
[2020-04-12 06:05] LABS: BLOOD UREA NITROGEN 19.5 mg/dL (7-18)
[2020-04-12 06:07] LABS: CREATININE 0.6 mg/dL (0.55-1.3)
[2020-04-12 06:08] LABS: PHOSPHOROUS 4.4 mg/dL (2.5-4.9)
[2020-04-12 06:09] LABS: BILIRUBIN,TOTAL 0.5 mg/dL (0.2-1); TOT PROT 6.8 g/dl (6.4-8.2)
[2020-04-12] MEDS ORDERED: POTASSIUM CHLORIDE ORAL LIQUID 20 MEQ/15 ML PO ONE (07:37)
[2020-04-12] MEDS ORDERED: POTASSIUM CHLORIDE ORAL LIQUID 20 MEQ/15 ML ONE (08:32)
[2020-04-12] MEDS: LEVOTHYROXINE NA 112 MCG TABLET (FP) PO SCH (08:52)
[2020-04-12 14:24] LABS: ARTERIAL BLD GAS O2 SATURATION 96.5 mmHg (95-98); ARTERIAL BLOOD GAS BASE EXCESS 8.6 mmol/L (-2-2); ARTERIAL BLOOD GAS PO2 91.8 mmHg (80-100); ARTERIAL BLOOD GAS pH 7.364 (7.350-7.450)
[2020-04-12 14:25] LABS: ALLENS TEST POSITIVE
[2020-04-12] MEDS: TORSEMIDE 20 MG TABLET (FP) PO SCH (17:11)
[2020-04-13] MEDS: LEVOTHYROXINE NA 112 MCG TABLET (FP) PO SCH (06:08)
[2020-04-13 08:21] LABS: HEMATOCRIT 38.4 % (32.4-45.2); HEMOGLOBIN 12.3 GM/dL (10.7-15.3); MCH 26.4 pg (25.7-33.7); MCHC 31.9 g/dl (32.0-36.0); MEAN CELL VOLUME 82.9 fl (80-96); MEAN PLT VOLUME 8.1 fl (7.5-11.1); PLATELET COUNT 180 K/MM3 (134-434); RBC 4.64 M/mm3 (3.60-5.2); RDW 18.1 % (11.6-15.6); WHITE BLOOD COUNT 3.5 K/mm3 (4.0-10.0)
[2020-04-13 08:31] LABS: POTASSIUM 4.2 mmol/L (3.5-5.1)
[2020-04-13 08:45] LABS: BLOOD UREA NITROGEN 20.9 mg/dL (7-18); MAGNESIUM 2.2 mg/dL (1.8-2.4)
[2020-04-13 08:49] LABS: CREATININE 0.6 mg/dL (0.55-1.3); PHOSPHOROUS 4.5 mg/dL (2.5-4.9)
[2020-04-13 10:24] LABS: ARTERIAL BLD GAS O2 SATURATION 83.6 mmHg (95-98); ARTERIAL BLOOD GAS BASE EXCESS 8.4 mmol/L (-2-2); ARTERIAL BLOOD GAS PO2 49.9 mmHg (80-100); ARTERIAL BLOOD GAS pH 7.382 (7.350-7.450)
[2020-04-13 10:25] LABS: ALLENS TEST POSITIVE
[2020-04-13] MEDS ORDERED: ALBUTEROL SO4 0.083% IH SOL 2.5 MG/3 ML VIAL.NEB. NEB PRN (13:30)
[2020-04-13] MEDS: TIOTROPIUM BROMIDE 2.5 MCG (SPIRIVA) RESPIMAT INHALER IH SCH (16:22)
[2020-04-13] MEDS: predniSONE 20 MG TABLET (UD) PO SCH (16:22)
[2020-04-13] MEDS: BUDESONIDE/FORMETEROL FUMARATE 160/4.5 mcg INHALER IH SCH ×2 (16:22→21:37)
[2020-04-13] MEDS: AZITHROMYCIN IVPB 250 MG in DEXTROSE 5%-WATER - 250 ML IVPB SCH (16:23)
[2020-04-13] MEDS: TORSEMIDE 20 MG TABLET (FP) PO SCH (16:24)
[2020-04-14] MEDS: LEVOTHYROXINE NA 112 MCG TABLET (FP) PO SCH (06:13)
[2020-04-14 08:23] LABS: HEMATOCRIT 39.4 % (32.4-45.2); HEMOGLOBIN 12.6 GM/dL (10.7-15.3); MCH 26.2 pg (25.7-33.7); MEAN CELL VOLUME 82.1 fl (80-96); PLATELET COUNT 176 K/MM3 (134-434); RDW 18.3 % (11.6-15.6); WHITE BLOOD COUNT 2.6 K/mm3 (4.0-10.0)
[2020-04-14 08:37] LABS: POTASSIUM 4.2 mmol/L (3.5-5.1)
[2020-04-14 08:40] LABS: CALCIUM 8.9 mg/dL (8.5-10.1)
[2020-04-14 08:44] LABS: CREATININE 0.5 mg/dL (0.55-1.3)
[2020-04-14] MEDS: predniSONE 20 MG TABLET (UD) PO SCH (10:06)
[2020-04-14] MEDS: AZITHROMYCIN IVPB 250 MG in DEXTROSE 5%-WATER - 250 ML IVPB SCH (10:06)
[2020-04-14] MEDS: TIOTROPIUM BROMIDE 2.5 MCG (SPIRIVA) RESPIMAT INHALER IH SCH (10:07)
[2020-04-14] MEDS: BUDESONIDE/FORMETEROL FUMARATE 160/4.5 mcg INHALER IH SCH ×2 (10:07→21:45)
[2020-04-14] MEDS: TORSEMIDE 20 MG TABLET (FP) PO SCH (16:49)
[2020-04-14 21:41] VITALS: BMI 14.3
[2020-04-15] MEDS: LEVOTHYROXINE NA 112 MCG TABLET (FP) PO SCH (06:12)
[2020-04-15 09:00] LABS: HEMATOCRIT 41.5 % (32.4-45.2); HEMOGLOBIN 13.5 GM/dL (10.7-15.3); MCH 26.7 pg (25.7-33.7); MCHC 32.6 g/dl (32.0-36.0); MEAN PLT VOLUME 8.1 fl (7.5-11.1); PLATELET COUNT 192 K/MM3 (134-434); RBC 5.06 M/mm3 (3.60-5.2); RDW 18.6 % (11.6-15.6); WHITE BLOOD COUNT 4.1 K/mm3 (4.0-10.0)
[2020-04-15 09:26] LABS: CHLORIDE 88 mmol/L (98-107); POTASSIUM 3.6 mmol/L (3.5-5.1); SODIUM 135 mmol/L (136-145)
[2020-04-15 09:28] LABS: ALBUMIN 3.6 g/dl (3.4-5.0); ANION GAP 3 MMOL/L (8-16); BLOOD UREA NITROGEN 18.9 mg/dL (7-18); CALCIUM 9.3 mg/dL (8.5-10.1); CO2 > 45 mmol/L (21-32); GLUCOSE,RANDOM 79 mg/dL (74-106)
[2020-04-15 09:31] LABS: CREATININE 0.7 mg/dL (0.55-1.3); SGOT/AST 13 U/L (15-37); SGPT/ALT 22 U/L (13-61)
[2020-04-15 09:32] LABS: BILIRUBIN,TOTAL 0.7 mg/dL (0.2-1)
[2020-04-15 09:33] LABS: ALK PHOS 96 U/L (45-117); TOT PROT 7.8 g/dl (6.4-8.2)
[2020-04-15] MEDS: predniSONE 20 MG TABLET (UD) PO SCH (09:53)
[2020-04-15] MEDS: ENOXAPARIN NA (PORCINE) 30 MG/0.3 ML DISP.SYRIN SQ SCH (09:53)
[2020-04-15] MEDS: TIOTROPIUM BROMIDE 2.5 MCG (SPIRIVA) RESPIMAT INHALER IH SCH (09:53)
[2020-04-15] MEDS: AZITHROMYCIN IVPB 250 MG in DEXTROSE 5%-WATER - 250 ML IVPB SCH (09:53)
[2020-04-15] MEDS: BUDESONIDE/FORMETEROL FUMARATE 160/4.5 mcg INHALER IH SCH (09:53)
[2020-04-15] MEDS: TORSEMIDE 20 MG TABLET (FP) PO SCH (16:40)
[2020-04-16] MEDS: BUDESONIDE/FORMETEROL FUMARATE 160/4.5 mcg INHALER IH SCH ×2 (03:01→10:30)
[2020-04-16] MEDS: LEVOTHYROXINE NA 112 MCG TABLET (FP) PO SCH (06:09)
[2020-04-16] MEDS ORDERED: MULTIVITAMINS THER W-MINERALS COMBO TABLET (FP) PO SCH (10:00)
[2020-04-16] MEDS: AZITHROMYCIN IVPB 250 MG in DEXTROSE 5%-WATER - 250 ML IVPB SCH (10:28)
[2020-04-16] MEDS: predniSONE 20 MG TABLET (UD) PO SCH (10:29)
[2020-04-16] MEDS: ENOXAPARIN NA (PORCINE) 30 MG/0.3 ML DISP.SYRIN SQ SCH (10:29)
[2020-04-16] MEDS: TIOTROPIUM BROMIDE 2.5 MCG (SPIRIVA) RESPIMAT INHALER IH SCH (10:30)
[2020-04-16 10:33] VITALS: BP 113/73; PULSE 83; TEMP 98.6
== END 2020-04-16 15:08 | disposition home health service (06) | DRG 189 ==
LOC: JER 10:52 → JERBED 12:44 → J7W 04-12 09:48
PROVIDERS: ADMIT Internal Medicine
DX: J96.22 Acute and chronic respiratory failure with hypercapnia (principal); E43 Unspecified severe protein-calorie malnutrition; J98.11 Atelectasis; I50.32 Chronic diastolic (congestive) heart failure; R64 Cachexia; J44.1 Chronic obstructive pulmonary disease with (acute) exacerbation; Z68.1 Body mass index [BMI] 19.9 or less, adult; J96.21 Acute and chronic respiratory failure with hypoxia; I27.20 Pulmonary hypertension, unspecified; R04.0 Epistaxis; R62.50 Unspecified lack of expected normal physiological development in childhood; E03.9 Hypothyroidism, unspecified; M81.0 Age-related osteoporosis without current pathological fracture; F79 Unspecified intellectual disabilities; I11.0 Hypertensive heart disease with heart failure; I50.9 Heart failure, unspecified; M40.209 Unspecified kyphosis, site unspecified
CPT/HCPCS: 36415; 36600; 71045-TC-FY; 71275-TC; 80048; 80053; 82803; 83735; 83880; 84100; 84484; 85025; 85027; 85379; 93005; 93010; 94010; 94761; 97116-GP; 97161-GP; 99285-25; C9803; Q9967; U0003

== ENCOUNTER 2022-06-09 23:09 | Inpatient (IN) | payer OTHER ==
[2022-06-09] MEDS ORDERED: PIPERACILLIN/TAZOB 3.375 GM 3.375 GM in DEXTROSE 5%-WATER - 50 ML IVPB ONE (23:53)
[2022-06-09] MEDS ORDERED: DEXAMETHASONE SOD PHOSPHATE 10 MG/1 ML VIAL IVPUSH ONE (23:54)
[2022-06-10] MEDS ORDERED: SODIUM CHLORIDE 0.9% 500 ML INFUS.BAG IV ONE (00:17)
[2022-06-10] MEDS ORDERED: DEXAMETHASONE SOD PHOSPHATE 10 MG/1 ML VIAL ONE (00:39)
[2022-06-10] MEDS ORDERED: PIPERACILLIN/TAZOB 3.375 GM 3.375 GM/50 ML BAG IVPB ONE (00:40)
[2022-06-10 00:43] LABS: BASO % 0.3 % (0-2.0); EOS % 0.1 % (0-4.5); HEMATOCRIT 43.6 % (32.4-45.2); HEMOGLOBIN 14.5 GM/dL (10.7-15.3); LYMPH % 6.1 % (8-40); MCH 28.8 pg (25.7-33.7); MCHC 33.3 g/dl (32.0-36.0); MEAN CELL VOLUME 86.5 fl (80-96); MEAN PLT VOLUME 8.2 fl (7.5-11.1); MONO % 5.9 % (3.8-10.2); NEUT % 87.6 % (42.8-82.8); PLATELET COUNT 230 10^3/uL (134-434); RBC 5.04 M/mm3 (3.60-5.2); RDW 15.2 % (11.6-15.6); WHITE BLOOD COUNT 11.6 K/mm3 (4.0-10.0)
[2022-06-10 01:15] LABS: LACTIC ACID 2.3 mmol/L (0.4-2.0)
[2022-06-10 02:46] LABS: POTASSIUM 3.3 mmol/L (3.5-5.1)
[2022-06-10 02:48] LABS: CALCIUM 8.7 mg/dL (8.5-10.1)
[2022-06-10 02:49] LABS: ALBUMIN 3.5 g/dl (3.4-5.0); BLOOD UREA NITROGEN 22.8 mg/dL (7-18); MAGNESIUM 1.7 mg/dL (1.8-2.4)
[2022-06-10 02:52] LABS: CREATININE 0.7 mg/dL (0.55-1.3); PHOSPHOROUS 3.5 mg/dL (2.5-4.9)
[2022-06-10 02:54] LABS: BILIRUBIN,TOTAL 0.4 mg/dL (0.2-1); TOT PROT 8.3 g/dl (6.4-8.2)
[2022-06-10] MEDS ORDERED: ACETAMINOPHEN 1000 MG/100 ML BAG IVPB ONE ×2 (04:30→20:07)
[2022-06-10] MEDS ORDERED: ACETAMINOPHEN INJECTION 100 ML IVPB ONE (04:48)
[2022-06-10 06:47] LABS: VENOUS BASE EXCESS 1.1 mmol/L (-2-2); VENOUS PCO2 43.3 mmHg (38-52); VENOUS PH 7.399 (7.310-7.410)
[2022-06-10 09:08] LABS: EPI CELLS 33 /uL (0-25.1); HYALINE CASTS 0 /uL (0-3.1); URINE APPEARANCE CLEAR; URINE BACTERIA 77 /uL (0-1359); URINE BILIRUBIN NEGATIVE (NEGATIVE); URINE COLOR YELLOW; URINE GLUCOSE (UA) 1+ (NEGATIVE); URINE KETONE NEGATIVE (NEGATIVE); URINE LEUK ESTERASE 2+ (NEGATIVE); URINE NITRITE NEGATIVE (NEGATIVE); URINE PROTEIN 1+ (NEGATIVE); URINE RBC 26 /uL (0-23.9); URINE UROBILINOGEN 0.2 mg/dL (0.2-1.0); URINE WBC 51 /uL (0-25.8)
[2022-06-10] MEDS ORDERED: AMPICILLIN NA/SULBACTAM NA 1.5 GM in SODIUM CHLORIDE 100 ML IVPB SCH (10:45)
[2022-06-10 11:19] LABS: POTASSIUM 3.5 mmol/L (3.5-5.1)
[2022-06-10 11:21] LABS: BLOOD UREA NITROGEN 16.1 mg/dL (7-18); CALCIUM 8.6 mg/dL (8.5-10.1)
[2022-06-10 11:22] LABS: ALBUMIN 3.1 g/dl (3.4-5.0); MAGNESIUM 1.9 mg/dL (1.8-2.4)
[2022-06-10 11:25] LABS: CREATININE 0.5 mg/dL (0.55-1.3)
[2022-06-10 11:26] LABS: BILIRUBIN,TOTAL 0.3 mg/dL (0.2-1); TOT PROT 7.3 g/dl (6.4-8.2)
[2022-06-10] MEDS: AMPICILLIN NA/SULBACTAM NA 1.5 GM in SODIUM CHLORIDE 100 ML IVPB SCH ×2 (14:12→21:22)
[2022-06-10] MEDS: LACTATED RINGERS SOLUTION 1,000 ML/1,000 ML INFUS.BAG IV SCH (14:34)
[2022-06-10] MEDS: ENOXAPARIN NA (PORCINE) 40 MG/0.4 ML DISP.SYRIN SQ SCH (14:40)
[2022-06-10] MEDS ORDERED: ALBUTEROL SO4 HFA INHALER IH PRN (15:33)
[2022-06-10] MEDS ORDERED: MAGNESIUM SULF 50% (8.12 MEQ/2 ML-1 GM VIAL) IVPB ONE (16:00)
[2022-06-10] MEDS ORDERED: MAGNESIUM 2GM/50ML STERILE WATER IVPB IVPB ONE (16:30)
[2022-06-10] MEDS: KCL 10 MEQ IVPB 10 MEQ/100 ML INFUS.BAG IVPB SCH ×3 (17:45→22:10)
[2022-06-10] MEDS: TIOTROPIUM BROMIDE 2.5 MCG (SPIRIVA) RESPIMAT INHALER IH SCH (17:45)
[2022-06-10] MEDS ORDERED: LORazepam 2 MG/ML SDV VIAL IVPUSH PRN (19:31)
[2022-06-10] MEDS: BUDESONIDE/FORMETEROL FUMARATE 80/4.5 mcg INHALER IH SCH (22:09)
[2022-06-11] MEDS: AMPICILLIN NA/SULBACTAM NA 1.5 GM in SODIUM CHLORIDE 100 ML IVPB SCH ×4 (02:19→21:49)
[2022-06-11] MEDS: LEVOTHYROXINE SODIUM 100 MCG 5 ML VIAL IVPUSH SCH (06:47)
[2022-06-11 08:37] LABS: BASO % 0.4 % (0-2.0); EOS % 1.2 % (0-4.5); HEMOGLOBIN 12.2 GM/dL (10.7-15.3); LYMPH % 20.3 % (8-40); MCH 29.2 pg (25.7-33.7); MEAN PLT VOLUME 8.6 fl (7.5-11.1); MONO % 11.3 % (3.8-10.2); NEUT % 66.8 % (42.8-82.8); PLATELET COUNT 183 10^3/uL (134-434); POTASSIUM 3.9 mmol/L (3.5-5.1); RBC 4.18 M/mm3 (3.60-5.2); RDW 15.1 % (11.6-15.6)
[2022-06-11 08:45] LABS: ALBUMIN 2.6 g/dl (3.4-5.0); BLOOD UREA NITROGEN 13.2 mg/dL (7-18); CALCIUM 8.3 mg/dL (8.5-10.1); MAGNESIUM 2.4 mg/dL (1.8-2.4)
[2022-06-11 08:48] LABS: CREATININE 0.4 mg/dL (0.55-1.3); PHOSPHOROUS 2.3 mg/dL (2.5-4.9)
[2022-06-11 08:49] LABS: TOT PROT 6.4 g/dl (6.4-8.2)
[2022-06-11 08:50] LABS: BILIRUBIN,TOTAL 0.4 mg/dL (0.2-1)
[2022-06-11] MEDS: ENOXAPARIN NA (PORCINE) 40 MG/0.4 ML DISP.SYRIN SQ SCH (09:51)
[2022-06-11] MEDS: TIOTROPIUM BROMIDE 2.5 MCG (SPIRIVA) RESPIMAT INHALER IH SCH (09:53)
[2022-06-11] MEDS: BUDESONIDE/FORMETEROL FUMARATE 80/4.5 mcg INHALER IH SCH ×2 (09:54→21:49)
[2022-06-11] MEDS: LACTATED RINGERS SOLUTION 1,000 ML/1,000 ML INFUS.BAG IV SCH (15:06)
[2022-06-11] MEDS ORDERED: FENTANYL CITRATE/PF 50 MCG/ML VIAL ONE ×2 (15:14→15:15)
[2022-06-11] MEDS ORDERED: METOCLOPRAMIDE HCL INJECTION 10 MG/2 ML VIAL IVPUSH PRN (17:34)
[2022-06-11 17:57] VITALS: RESP 20
[2022-06-11] MEDS: ACETAMINOPHEN 1000 MG/100 ML BAG IVPB ONE ×2 (21:14→21:40)
[2022-06-12] MEDS: AMPICILLIN NA/SULBACTAM NA 1.5 GM in SODIUM CHLORIDE 100 ML IVPB SCH ×4 (03:20→21:39)
[2022-06-12] MEDS: LEVOTHYROXINE SODIUM 100 MCG 5 ML VIAL IVPUSH SCH (06:27)
[2022-06-12 08:56] LABS: BASO % 0.3 % (0-2.0); EOS % 0.7 % (0-4.5); HEMATOCRIT 35.4 % (32.4-45.2); HEMOGLOBIN 11.7 GM/dL (10.7-15.3); LYMPH % 23.8 % (8-40); MCH 28.8 pg (25.7-33.7); MCHC 32.9 g/dl (32.0-36.0); MEAN CELL VOLUME 87.5 fl (80-96); MEAN PLT VOLUME 8.4 fl (7.5-11.1); NEUT % 65.2 % (42.8-82.8); PLATELET COUNT 166 10^3/uL (134-434); RBC 4.05 M/mm3 (3.60-5.2); RDW 15.1 % (11.6-15.6); WHITE BLOOD COUNT 4.7 K/mm3 (4.0-10.0)
[2022-06-12 09:12] LABS: POTASSIUM 4.1 mmol/L (3.5-5.1)
[2022-06-12 09:14] LABS: CALCIUM 8.7 mg/dL (8.5-10.1)
[2022-06-12 09:15] LABS: ALBUMIN 2.5 g/dl (3.4-5.0); BLOOD UREA NITROGEN 15.3 mg/dL (7-18); MAGNESIUM 2.1 mg/dL (1.8-2.4)
[2022-06-12 09:18] LABS: CREATININE 0.3 mg/dL (0.55-1.3)
[2022-06-12 09:19] LABS: BILIRUBIN,TOTAL 0.3 mg/dL (0.2-1)
[2022-06-12] MEDS: TIOTROPIUM BROMIDE 2.5 MCG (SPIRIVA) RESPIMAT INHALER IH SCH (09:33)
[2022-06-12] MEDS: BUDESONIDE/FORMETEROL FUMARATE 80/4.5 mcg INHALER IH SCH ×2 (09:34→21:39)
[2022-06-13] MEDS: AMPICILLIN NA/SULBACTAM NA 1.5 GM in SODIUM CHLORIDE 100 ML IVPB SCH ×2 (03:11→09:04)
[2022-06-13] MEDS: LEVOTHYROXINE SODIUM 100 MCG 5 ML VIAL IVPUSH SCH (06:07)
[2022-06-13 07:05] VITALS: PULSE 76; TEMP 97.8
[2022-06-13] MEDS: BUDESONIDE/FORMETEROL FUMARATE 80/4.5 mcg INHALER IH SCH (09:09)
[2022-06-13] MEDS: TIOTROPIUM BROMIDE 2.5 MCG (SPIRIVA) RESPIMAT INHALER IH SCH (09:09)
[2022-06-13 12:18] VITALS: BP 125/68
[2022-06-13 13:23] VITALS: BMI 20.5
== END 2022-06-13 13:25 | disposition home health service (06) | DRG 391 ==
LOC: JER 23:09 → JERBED 06-10 08:12 → J8W 06-10 10:49
PROVIDERS: ADMIT Internal Medicine; ATTEND Nurse Practitioner Acute Care
PROC: 0DB68ZX Excision of Stomach, Via Natural or Artificial Opening Endoscopic, Diagnostic (ICD-10-PCS; principal; 2022-06-11 15:45)
DX: K22.0 Achalasia of cardia (principal); J69.0 Pneumonitis due to inhalation of food and vomit; J96.12 Chronic respiratory failure with hypercapnia; J96.11 Chronic respiratory failure with hypoxia; J44.0 Chronic obstructive pulmonary disease with (acute) lower respiratory infection; I50.32 Chronic diastolic (congestive) heart failure; N39.0 Urinary tract infection, site not specified; R64 Cachexia; R56.9 Unspecified convulsions; J44.9 Chronic obstructive pulmonary disease, unspecified; E78.5 Hyperlipidemia, unspecified; M81.8 Other osteoporosis without current pathological fracture; I27.20 Pulmonary hypertension, unspecified; E03.9 Hypothyroidism, unspecified; I11.0 Hypertensive heart disease with heart failure; K31.84 Gastroparesis; Z68.20 Body mass index [BMI] 20.0-20.9, adult; I08.3 Combined rheumatic disorders of mitral, aortic and tricuspid valves; K22.89 Other specified disease of esophagus; K29.60 Other gastritis without bleeding; T18.128A Food in esophagus causing other injury, initial encounter; F81.9 Developmental disorder of scholastic skills, unspecified; Z99.81 Dependence on supplemental oxygen
CPT/HCPCS: 0241U-QW; 36415; 70450-TC; 70551-TC; 71045-TC-FY; 71250-TC; 72125-TC; 80053; 81003; 82550; 82607; 82803; 82977; 83605; 83735; 84100; 84146; 84439; 84443; 84484; 85025; 87040; 87086; 88305-TC; 93005; 93010; 93306-TC; 95816; 97116-GP; 97162-GP; 99285-25; J1100

== ENCOUNTER 2022-10-01 12:49 | Inpatient (IN) | payer OTHER ==
[2022-10-01] MEDS ORDERED: ACETAMINOPHEN 1000 MG/100 ML BAG IVPB ONE (14:32)
[2022-10-01] MEDS ORDERED: ACETAMINOPHEN INJECTION 100 ML IVPB ONE (15:20)
[2022-10-01 16:56] LABS: BASO % 0.6 % (0-2.0); EOS % 0.7 % (0-4.5); HEMATOCRIT 37.9 % (32.4-45.2); HEMOGLOBIN 12.3 GM/dL (10.7-15.3); LYMPH % 15.2 % (8-40); MCH 29.3 pg (25.7-33.7); MCHC 32.5 g/dl (32.0-36.0); MEAN CELL VOLUME 90.2 fl (80-96); MEAN PLT VOLUME 8.6 fl (7.5-11.1); MONO % 9.2 % (3.8-10.2); NEUT % 74.3 % (42.8-82.8); PLATELET COUNT 185 10^3/uL (134-434); RBC 4.21 M/mm3 (3.60-5.2); RDW 15.7 % (11.6-15.6); WHITE BLOOD COUNT 5.6 K/mm3 (4.0-10.0)
[2022-10-01 17:17] LABS: POTASSIUM 4.3 mmol/L (3.5-5.1)
[2022-10-01 17:20] LABS: ALBUMIN 3.2 g/dl (3.4-5.0); BLOOD UREA NITROGEN 19.7 mg/dL (7-18); CALCIUM 9.3 mg/dL (8.5-10.1)
[2022-10-01 17:23] LABS: CREATININE 0.5 mg/dL (0.55-1.3)
[2022-10-01 17:25] LABS: BILIRUBIN,TOTAL 0.2 mg/dL (0.2-1); TOT PROT 7.2 g/dl (6.4-8.2)
[2022-10-01] MEDS ORDERED: PIPERACILLIN/TAZOB 4.5 GM 4.5 GM in DEXTROSE 5%-WATER 100 ML IVPB ONE (19:19)
[2022-10-01] MEDS ORDERED: VANCOMYCIN 1,000 MG in DEXTROSE 5%-WATER - 250 ML IVPB ONE (19:19)
[2022-10-01] MEDS ORDERED: AZITHROMYCIN IVPB 500 MG in DEXTROSE 5%-WATER - 250 ML IVPB ONE (19:19)
[2022-10-01] MEDS ORDERED: VANCOMYCIN 1 GRAM (PRE-DOCKED) 1,000 MG/250 ML BAG IVPB ONE (20:35)
[2022-10-01] MEDS ORDERED: PIPERACILLIN/TAZOB 4.5 GM 4.5 GM/100 ML BAG IVPB ONE (20:35)
[2022-10-01] MEDS ORDERED: AZITHROMYCIN IVPB 500 MG/250 ML BAG IVPB ONE (20:36)
[2022-10-01] MEDS ORDERED: methylPREDNISolone NA SUCC 40 MG/1 ML VIAL ONE (23:31)
[2022-10-01] MEDS: methylPREDNISolone NA SUCC 40 MG/1 ML VIAL IVPUSH SCH (23:35)
[2022-10-02] MEDS ORDERED: ACETAMINOPHEN 1000 MG/100 ML BAG IVPB PRN (01:09)
[2022-10-02] MEDS ORDERED: methylPREDNISolone NA SUCC 40 MG/1 ML VIAL ONE ×2 (03:40→08:38)
[2022-10-02] MEDS: methylPREDNISolone NA SUCC 40 MG/1 ML VIAL IVPUSH SCH ×4 (04:09→21:54)
[2022-10-02 08:14] LABS: PH,URINE >= 9.0 (5.0-8.0); URINE APPEARANCE CLEAR; URINE BILIRUBIN NEGATIVE (NEGATIVE); URINE COLOR YELLOW; URINE GLUCOSE (UA) NEGATIVE (NEGATIVE); URINE KETONE NEGATIVE (NEGATIVE); URINE LEUK ESTERASE NEGATIVE (NEGATIVE); URINE NITRITE NEGATIVE (NEGATIVE); URINE PROTEIN NEGATIVE (NEGATIVE); URINE UROBILINOGEN 0.2 mg/dL (0.2-1.0)
[2022-10-02 08:24] LABS: HEMATOCRIT 39.1 % (32.4-45.2); HEMOGLOBIN 12.4 GM/dL (10.7-15.3); MCH 28.9 pg (25.7-33.7); MCHC 31.7 g/dl (32.0-36.0); MEAN CELL VOLUME 91.1 fl (80-96); MEAN PLT VOLUME 8.4 fl (7.5-11.1); PLATELET COUNT 212 10^3/uL (134-434); RBC 4.29 M/mm3 (3.60-5.2); RDW 14.9 % (11.6-15.6); WHITE BLOOD COUNT 5.2 K/mm3 (4.0-10.0)
[2022-10-02 08:36] LABS: POTASSIUM 4.6 mmol/L (3.5-5.1)
[2022-10-02 08:38] LABS: ALBUMIN 3.1 g/dl (3.4-5.0)
[2022-10-02 08:40] LABS: BLOOD UREA NITROGEN 11.4 mg/dL (7-18); CALCIUM 9.4 mg/dL (8.5-10.1); MAGNESIUM 2.2 mg/dL (1.8-2.4)
[2022-10-02 08:41] LABS: CREATININE 0.5 mg/dL (0.55-1.3)
[2022-10-02 08:42] LABS: TOT PROT 7.2 g/dl (6.4-8.2)
[2022-10-02 08:44] LABS: BILIRUBIN,TOTAL 0.2 mg/dL (0.2-1); PHOSPHOROUS 3.7 mg/dL (2.5-4.9)
[2022-10-02] MEDS ORDERED: ENOXAPARIN NA (PORCINE) 40 MG/0.4 ML DISP.SYRIN SQ ONE (09:08)
[2022-10-02] MEDS ORDERED: LIDOCAINE 5% TOPICAL PATCH ONE (09:08)
[2022-10-02] MEDS: ENOXAPARIN NA (PORCINE) 40 MG/0.4 ML DISP.SYRIN SQ SCH (09:12)
[2022-10-02] MEDS: LIDOCAINE 5% TOPICAL PATCH TP SCH (09:12)
[2022-10-02] MEDS ORDERED: ALBUTEROL SO4 HFA INHALER IH PRN (09:39)
[2022-10-02] MEDS ORDERED: METOCLOPRAMIDE HCL 10 MG TABLET (FP) PO SCH (10:00)
[2022-10-02] MEDS: TORSEMIDE 20 MG TABLET (FP) PO SCH (11:06)
[2022-10-02] MEDS: METOCLOPRAMIDE HCL 10 MG TABLET (FP) PO SCH ×3 (11:06→21:54)
[2022-10-02] MEDS: TIOTROPIUM BROMIDE 2.5 MCG (SPIRIVA) RESPIMAT INHALER IH SCH (15:03)
[2022-10-02] MEDS: BUDESONIDE/FORMETEROL FUMARATE 80/4.5 mcg INHALER IH SCH ×2 (15:04→21:54)
[2022-10-02] MEDS: LIDOCAINE PATCH REMOVAL MC SCH (21:54)
[2022-10-03] MEDS: methylPREDNISolone NA SUCC 40 MG/1 ML VIAL IVPUSH SCH ×4 (02:09→21:37)
[2022-10-03] MEDS: LEVOTHYROXINE SODIUM 100 MCG 5 ML VIAL IVPUSH SCH (06:17)
[2022-10-03] MEDS: METOCLOPRAMIDE HCL 10 MG TABLET (FP) PO SCH ×4 (06:18→21:38)
[2022-10-03 08:40] LABS: HEMATOCRIT 35.1 % (32.4-45.2); HEMOGLOBIN 11.7 GM/dL (10.7-15.3); LYMPH % 8.4 % (8-40); MCH 29.6 pg (25.7-33.7); MCHC 33.4 g/dl (32.0-36.0); MEAN CELL VOLUME 88.6 fl (80-96); MEAN PLT VOLUME 7.9 fl (7.5-11.1); MONO % 2.8 % (3.8-10.2); NEUT % 88.8 % (42.8-82.8); PLATELET COUNT 199 10^3/uL (134-434); RBC 3.96 M/mm3 (3.60-5.2); RDW 15.4 % (11.6-15.6)
[2022-10-03 08:59] LABS: CALCIUM 8.7 mg/dL (8.5-10.1); POTASSIUM 4.3 mmol/L (3.5-5.1)
[2022-10-03 09:01] LABS: BLOOD UREA NITROGEN 19.4 mg/dL (7-18)
[2022-10-03 09:02] LABS: CREATININE 0.6 mg/dL (0.55-1.3)
[2022-10-03] MEDS: TORSEMIDE 20 MG TABLET (FP) PO SCH (10:11)
[2022-10-03] MEDS: ENOXAPARIN NA (PORCINE) 40 MG/0.4 ML DISP.SYRIN SQ SCH (10:11)
[2022-10-03] MEDS: LIDOCAINE 5% TOPICAL PATCH TP SCH ×2 (10:11→11:00)
[2022-10-03] MEDS: CEFTRIAXONE 1 GM in DEXTROSE 5%-WATER - 50 ML IVPB SCH (10:12)
[2022-10-03] MEDS: TIOTROPIUM BROMIDE 2.5 MCG (SPIRIVA) RESPIMAT INHALER IH SCH (10:47)
[2022-10-03] MEDS: BUDESONIDE/FORMETEROL FUMARATE 80/4.5 mcg INHALER IH SCH ×2 (10:48→21:38)
[2022-10-03] MEDS ORDERED: ALBUTEROL SO4 HFA INHALER IH PRN (16:25)
[2022-10-03] MEDS: LIDOCAINE PATCH REMOVAL MC SCH (21:38)
[2022-10-04] MEDS: methylPREDNISolone NA SUCC 40 MG/1 ML VIAL IVPUSH SCH ×4 (02:13→22:13)
[2022-10-04] MEDS: LEVOTHYROXINE SODIUM 100 MCG 5 ML VIAL IVPUSH SCH (06:09)
[2022-10-04] MEDS: METOCLOPRAMIDE HCL 10 MG TABLET (FP) PO SCH ×4 (06:09→22:13)
[2022-10-04 09:58] LABS: BASO % 0.1 % (0-2.0); HEMATOCRIT 40.9 % (32.4-45.2); HEMOGLOBIN 13.6 GM/dL (10.7-15.3); LYMPH % 9.2 % (8-40); MCH 29.5 pg (25.7-33.7); MCHC 33.2 g/dl (32.0-36.0); MEAN CELL VOLUME 88.9 fl (80-96); MEAN PLT VOLUME 8.1 fl (7.5-11.1); NEUT % 87.7 % (42.8-82.8); PLATELET COUNT 251 10^3/uL (134-434); RDW 15.2 % (11.6-15.6); WHITE BLOOD COUNT 5.2 K/mm3 (4.0-10.0)
[2022-10-04] MEDS: TORSEMIDE 20 MG TABLET (FP) PO SCH (10:22)
[2022-10-04] MEDS: ENOXAPARIN NA (PORCINE) 40 MG/0.4 ML DISP.SYRIN SQ SCH (10:22)
[2022-10-04] MEDS: LIDOCAINE 5% TOPICAL PATCH TP SCH (10:22)
[2022-10-04] MEDS: CEFTRIAXONE 1 GM in DEXTROSE 5%-WATER - 50 ML IVPB SCH (10:22)
[2022-10-04] MEDS: BUDESONIDE/FORMETEROL FUMARATE 80/4.5 mcg INHALER IH SCH ×2 (10:24→22:16)
[2022-10-04] MEDS: TIOTROPIUM BROMIDE 2.5 MCG (SPIRIVA) RESPIMAT INHALER IH SCH (10:24)
[2022-10-04 10:25] LABS: CHLORIDE 96 mmol/L (98-107); POTASSIUM 4.1 mmol/L (3.5-5.1); SODIUM 141 mmol/L (136-145)
[2022-10-04 10:28] LABS: ALBUMIN 3.3 g/dl (3.4-5.0); ANION GAP 7 MMOL/L (8-16); BLOOD UREA NITROGEN 25.3 mg/dL (7-18); CALCIUM 9.5 mg/dL (8.5-10.1); CO2 38 mmol/L (21-32); GLUCOSE,RANDOM 137 mg/dL (74-106); MAGNESIUM 2.3 mg/dL (1.8-2.4)
[2022-10-04 10:32] LABS: CREATININE 0.6 mg/dL (0.55-1.3); SGOT/AST 18 U/L (15-37); SGPT/ALT 25 U/L (13-61)
[2022-10-04 10:33] LABS: ALK PHOS 122 U/L (45-117); BILIRUBIN,TOTAL 0.2 mg/dL (0.2-1); TOT PROT 7.7 g/dl (6.4-8.2)
[2022-10-04] MEDS: LIDOCAINE PATCH REMOVAL MC SCH (22:16)
[2022-10-05] MEDS: methylPREDNISolone NA SUCC 40 MG/1 ML VIAL IVPUSH SCH ×2 (04:14→09:55)
[2022-10-05] MEDS: METOCLOPRAMIDE HCL 10 MG TABLET (FP) PO SCH ×4 (06:37→22:09)
[2022-10-05] MEDS: LEVOTHYROXINE SODIUM 100 MCG 5 ML VIAL IVPUSH SCH (06:38)
[2022-10-05 09:41] LABS: HEMATOCRIT 40.5 % (32.4-45.2); HEMOGLOBIN 13.3 GM/dL (10.7-15.3); LYMPH % 15.4 % (8-40); MCH 29.5 pg (25.7-33.7); MCHC 32.8 g/dl (32.0-36.0); MEAN CELL VOLUME 90.1 fl (80-96); MEAN PLT VOLUME 8.4 fl (7.5-11.1); MONO % 6.6 % (3.8-10.2); PLATELET COUNT 246 10^3/uL (134-434); RDW 14.9 % (11.6-15.6); WHITE BLOOD COUNT 5.4 K/mm3 (4.0-10.0)
[2022-10-05] MEDS: ENOXAPARIN NA (PORCINE) 40 MG/0.4 ML DISP.SYRIN SQ SCH (09:55)
[2022-10-05] MEDS: CEFTRIAXONE 1 GM in DEXTROSE 5%-WATER - 50 ML IVPB SCH (09:55)
[2022-10-05] MEDS: LIDOCAINE 5% TOPICAL PATCH TP SCH (09:55)
[2022-10-05] MEDS: BUDESONIDE/FORMETEROL FUMARATE 80/4.5 mcg INHALER IH SCH ×2 (09:56→22:10)
[2022-10-05] MEDS: TIOTROPIUM BROMIDE 2.5 MCG (SPIRIVA) RESPIMAT INHALER IH SCH (09:56)
[2022-10-05] MEDS: TORSEMIDE 20 MG TABLET (FP) PO SCH (10:05)
[2022-10-05 10:15] LABS: POTASSIUM 4.3 mmol/L (3.5-5.1)
[2022-10-05 10:23] LABS: ALBUMIN 3.1 g/dl (3.4-5.0); CALCIUM 9.5 mg/dL (8.5-10.1); CREATININE 0.6 mg/dL (0.55-1.3)
[2022-10-05 10:24] LABS: BILIRUBIN,TOTAL 0.1 mg/dL (0.2-1); BLOOD UREA NITROGEN 24.5 mg/dL (7-18); MAGNESIUM 2.4 mg/dL (1.8-2.4); TOT PROT 7.3 g/dl (6.4-8.2)
[2022-10-05] MEDS: LIDOCAINE PATCH REMOVAL MC SCH (22:09)
[2022-10-06] MEDS: METOCLOPRAMIDE HCL 10 MG TABLET (FP) PO SCH ×4 (06:25→23:31)
[2022-10-06] MEDS: LEVOTHYROXINE SODIUM 100 MCG 5 ML VIAL IVPUSH SCH (06:25)
[2022-10-06] MEDS: LIDOCAINE 5% TOPICAL PATCH TP SCH (09:52)
[2022-10-06] MEDS: TORSEMIDE 20 MG TABLET (FP) PO SCH (09:52)
[2022-10-06] MEDS: methylPREDNISolone NA SUCC 40 MG/1 ML VIAL IVPUSH SCH (09:52)
[2022-10-06] MEDS: ENOXAPARIN NA (PORCINE) 40 MG/0.4 ML DISP.SYRIN SQ SCH (09:52)
[2022-10-06] MEDS: CEFTRIAXONE 1 GM in DEXTROSE 5%-WATER - 50 ML IVPB SCH (09:52)
[2022-10-06] MEDS: BUDESONIDE/FORMETEROL FUMARATE 80/4.5 mcg INHALER IH SCH ×2 (09:53→23:32)
[2022-10-06] MEDS: TIOTROPIUM BROMIDE 2.5 MCG (SPIRIVA) RESPIMAT INHALER IH SCH (09:53)
[2022-10-06 10:17] LABS: BASO % 0.1 % (0-2.0); HEMATOCRIT 39.8 % (32.4-45.2); HEMOGLOBIN 13.2 GM/dL (10.7-15.3); LYMPH % 26.3 % (8-40); MCH 29.4 pg (25.7-33.7); MCHC 33.1 g/dl (32.0-36.0); MEAN CELL VOLUME 88.7 fl (80-96); MEAN PLT VOLUME 7.8 fl (7.5-11.1); MONO % 11.4 % (3.8-10.2); NEUT % 61.2 % (42.8-82.8); PLATELET COUNT 226 10^3/uL (134-434); RBC 4.49 M/mm3 (3.60-5.2); RDW 14.7 % (11.6-15.6); WHITE BLOOD COUNT 5.6 K/mm3 (4.0-10.0)
[2022-10-06 10:33] LABS: ALBUMIN 2.8 g/dl (3.4-5.0); CALCIUM 8.9 mg/dL (8.5-10.1)
[2022-10-06 10:34] LABS: BLOOD UREA NITROGEN 29.6 mg/dL (7-18)
[2022-10-06 10:36] LABS: CREATININE 0.5 mg/dL (0.55-1.3)
[2022-10-06 10:37] LABS: MAGNESIUM 2.2 mg/dL (1.8-2.4)
[2022-10-06 10:38] LABS: BILIRUBIN,TOTAL 0.2 mg/dL (0.2-1); TOT PROT 6.6 g/dl (6.4-8.2)
[2022-10-06] MEDS: MULTIVITAMINS (DAILY MVI) TABLET (FP) PO SCH (16:36)
[2022-10-06] MEDS: LIDOCAINE PATCH REMOVAL MC SCH (23:31)
[2022-10-06] MEDS: CEFUROXIME AXETIL 250 MG TABLET PO SCH (23:31)
[2022-10-07] MEDS: LEVOTHYROXINE SODIUM 100 MCG 5 ML VIAL IVPUSH SCH (06:16)
[2022-10-07] MEDS: METOCLOPRAMIDE HCL 10 MG TABLET (FP) PO SCH ×4 (06:16→21:57)
[2022-10-07 08:14] LABS: BASO % 0.1 % (0-2.0); EOS % 1.7 % (0-4.5); HEMATOCRIT 40.2 % (32.4-45.2); HEMOGLOBIN 13.3 GM/dL (10.7-15.3); LYMPH % 27.4 % (8-40); MCH 29.3 pg (25.7-33.7); MCHC 33.1 g/dl (32.0-36.0); MEAN CELL VOLUME 88.5 fl (80-96); MEAN PLT VOLUME 7.9 fl (7.5-11.1); MONO % 11.8 % (3.8-10.2); PLATELET COUNT 224 10^3/uL (134-434); RBC 4.54 M/mm3 (3.60-5.2); RDW 15.2 % (11.6-15.6); WHITE BLOOD COUNT 5.7 K/mm3 (4.0-10.0)
[2022-10-07 08:32] LABS: POTASSIUM 3.7 mmol/L (3.5-5.1)
[2022-10-07 08:37] LABS: ALBUMIN 2.9 g/dl (3.4-5.0); BLOOD UREA NITROGEN 28.9 mg/dL (7-18); CALCIUM 9.2 mg/dL (8.5-10.1); MAGNESIUM 2.2 mg/dL (1.8-2.4)
[2022-10-07 08:40] LABS: CREATININE 0.6 mg/dL (0.55-1.3)
[2022-10-07 08:42] LABS: BILIRUBIN,TOTAL 0.2 mg/dL (0.2-1); TOT PROT 6.8 g/dl (6.4-8.2)
[2022-10-07 10:39] VITALS: BMI 14.3
[2022-10-07] MEDS: MULTIVITAMINS (DAILY MVI) TABLET (FP) PO SCH (10:45)
[2022-10-07] MEDS: methylPREDNISolone NA SUCC 40 MG/1 ML VIAL IVPUSH SCH (10:45)
[2022-10-07] MEDS: LIDOCAINE 5% TOPICAL PATCH TP SCH (10:45)
[2022-10-07] MEDS: TORSEMIDE 20 MG TABLET (FP) PO SCH (10:45)
[2022-10-07] MEDS: CEFUROXIME AXETIL 250 MG TABLET PO SCH ×2 (10:45→21:57)
[2022-10-07] MEDS: ENOXAPARIN NA (PORCINE) 40 MG/0.4 ML DISP.SYRIN SQ SCH (10:45)
[2022-10-07] MEDS: BUDESONIDE/FORMETEROL FUMARATE 80/4.5 mcg INHALER IH SCH ×2 (10:54→21:58)
[2022-10-07] MEDS: TIOTROPIUM BROMIDE 2.5 MCG (SPIRIVA) RESPIMAT INHALER IH SCH (10:55)
[2022-10-07] MEDS: LIDOCAINE PATCH REMOVAL MC SCH (21:58)
[2022-10-07] MEDS ORDERED: ACETAMINOPHEN 325 MG TABLET (FP) PO ONE (22:19)
[2022-10-08] MEDS: LEVOTHYROXINE SODIUM 100 MCG 5 ML VIAL IVPUSH SCH (06:13)
[2022-10-08] MEDS: METOCLOPRAMIDE HCL 10 MG TABLET (FP) PO SCH ×3 (06:13→16:38)
[2022-10-08] MEDS: LIDOCAINE 5% TOPICAL PATCH TP SCH (10:02)
[2022-10-08] MEDS: TORSEMIDE 20 MG TABLET (FP) PO SCH (10:02)
[2022-10-08] MEDS: MULTIVITAMINS (DAILY MVI) TABLET (FP) PO SCH (10:02)
[2022-10-08] MEDS: CEFUROXIME AXETIL 250 MG TABLET PO SCH (10:02)
[2022-10-08] MEDS: ENOXAPARIN NA (PORCINE) 40 MG/0.4 ML DISP.SYRIN SQ SCH (10:03)
[2022-10-08] MEDS: TIOTROPIUM BROMIDE 2.5 MCG (SPIRIVA) RESPIMAT INHALER IH SCH (10:04)
[2022-10-08] MEDS: BUDESONIDE/FORMETEROL FUMARATE 80/4.5 mcg INHALER IH SCH (10:04)
[2022-10-08 16:00] VITALS: BP 133/72; PULSE 89; RESP 18; TEMP 98.2
== END 2022-10-08 18:51 | disposition home or self-care (01) | DRG 177 ==
LOC: JER 12:49 → JERBED 19:56 → J8W 10-02 15:02
PROVIDERS: ADMIT Internal Medicine; ATTEND Nurse Practitioner Family
DX: J69.0 Pneumonitis due to inhalation of food and vomit (principal); E43 Unspecified severe protein-calorie malnutrition; I50.32 Chronic diastolic (congestive) heart failure; J90 Pleural effusion, not elsewhere classified; J98.11 Atelectasis; J96.11 Chronic respiratory failure with hypoxia; J44.0 Chronic obstructive pulmonary disease with (acute) lower respiratory infection; Z68.1 Body mass index [BMI] 19.9 or less, adult; J44.9 Chronic obstructive pulmonary disease, unspecified; I11.0 Hypertensive heart disease with heart failure; M81.0 Age-related osteoporosis without current pathological fracture; K22.0 Achalasia of cardia; I08.3 Combined rheumatic disorders of mitral, aortic and tricuspid valves; E03.9 Hypothyroidism, unspecified; I27.20 Pulmonary hypertension, unspecified; R56.9 Unspecified convulsions; M41.80 Other forms of scoliosis, site unspecified; F81.9 Developmental disorder of scholastic skills, unspecified; Z99.81 Dependence on supplemental oxygen
CPT/HCPCS: 0241U-QW; 36415; 71045-TC-FY; 71250-TC; 72128-TC; 74018-TC-FY; 74230-TC-FY; 80048; 80053; 81003; 83735; 84100; 84484; 85025; 85027; 86140; 87086; 92611-GN; 93005; 93010; 94010; 97116-GP; 99285-25

== ENCOUNTER 2023-04-25 23:46 | Inpatient (IN) | payer OTHER ==
[2023-04-26] MEDS ORDERED: ACETAMINOPHEN INJECTION 100 ML IVPB ONE (01:00)
[2023-04-26] MEDS: ACETAMINOPHEN 1000 MG/100 ML BAG IVPB ONE (01:07)
[2023-04-26 01:13] LABS: BASO % 0.5 % (0-2.0); EOS % 0.3 % (0-4.5); HEMATOCRIT 37.9 % (32.4-45.2); HEMOGLOBIN 12.1 GM/dL (10.7-15.3); LYMPH % 6.1 % (8-40); MCH 28.4 pg (25.7-33.7); MCHC 31.9 g/dl (32.0-36.0); MEAN PLT VOLUME 7.7 fl (7.5-11.1); MONO % 4.6 % (3.8-10.2); NEUT % 88.5 % (42.8-82.8); PLATELET COUNT 218 10^3/uL (134-434); RBC 4.26 M/mm3 (3.60-5.2); RDW 15.6 % (11.6-15.6); WHITE BLOOD COUNT 14.8 K/mm3 (4.0-10.0)
[2023-04-26 01:17] LABS: VENOUS BASE EXCESS 9.7 mmol/L (-2-2); VENOUS PH 7.349 (7.310-7.410)
[2023-04-26 01:19] LABS: VENOUS PCO2 70.4 mmHg (38-52)
[2023-04-26 01:24] LABS: POTASSIUM 4.1 mmol/L (3.5-5.1)
[2023-04-26 01:26] LABS: CALCIUM 9.3 mg/dL (8.5-10.1)
[2023-04-26 01:27] LABS: ALBUMIN 3.3 g/dl (3.4-5.0); BLOOD UREA NITROGEN 23.4 mg/dL (7-18)
[2023-04-26 01:30] LABS: CREATININE 0.7 mg/dL (0.55-1.3)
[2023-04-26 01:31] LABS: BILIRUBIN,TOTAL 0.4 mg/dL (0.2-1); TOT PROT 7.8 g/dl (6.4-8.2)
[2023-04-26] MEDS: morphine CARPU-JECT 2 MG/1 ML DISP.SYRIN IVPUSH ONE (03:17)
[2023-04-26 04:23] LABS: INR 1.03 (0.83-1.09); PROTHROMBIN TIME (PATIENT) 11.9 SEC (9.7-13.0)
[2023-04-26 04:26] LABS: ACTIVATED PTT 25.4 SECONDS (25.2-36.5)
[2023-04-26] MEDS ORDERED: ACETAMINOPHEN 1000 MG/100 ML BAG IVPB PRN ×2 (05:23→06:48)
[2023-04-26] MEDS ORDERED: ALBUTEROL SO4 HFA INHALER IH PRN (05:29)
[2023-04-26] MEDS: LEVOTHYROXINE NA 75 MCG TABLET (FP) PO SCH (06:16)
[2023-04-26] MEDS: CARBIDOPA/LEVODOPA 25/100 TABLET (FP) PO SCH (06:16)
[2023-04-26 09:20] LABS: BASO % 0.3 % (0-2.0); HEMOGLOBIN 9.3 GM/dL (10.7-15.3); LYMPH % 5.2 % (8-40); MCH 28.4 pg (25.7-33.7); MCHC 32.2 g/dl (32.0-36.0); MEAN PLT VOLUME 7.9 fl (7.5-11.1); NEUT % 86.5 % (42.8-82.8); PLATELET COUNT 160 10^3/uL (134-434); RBC 3.29 M/mm3 (3.60-5.2); RDW 14.8 % (11.6-15.6); WHITE BLOOD COUNT 13.5 K/mm3 (4.0-10.0)
[2023-04-26 10:09] LABS: TOT PROT 6.7 g/dl (6.4-8.2)
[2023-04-26] MEDS: METOCLOPRAMIDE HCL 10 MG TABLET (FP) PO SCH (10:19)
[2023-04-26] MEDS: TORSEMIDE 20 MG TABLET (FP) PO SCH (10:19)
[2023-04-26] MEDS: TIOTROPIUM BROMIDE 2.5 MCG (SPIRIVA) RESPIMAT INHALER IH SCH (10:21)
[2023-04-26 10:23] LABS: CALCIUM 9.8 mg/dL (8.5-10.1)
[2023-04-26 10:25] LABS: MAGNESIUM 2.3 mg/dL (1.8-2.4)
[2023-04-26 10:27] LABS: BLOOD UREA NITROGEN 22.9 mg/dL (7-18)
[2023-04-26 10:29] LABS: ALBUMIN 2.9 g/dl (3.4-5.0); CREATININE 0.7 mg/dL (0.55-1.3)
[2023-04-26 10:34] LABS: BILIRUBIN,TOTAL 0.4 mg/dL (0.2-1)
[2023-04-26] MEDS: traMADol HCL 50 MG TABLET PO PRN (14:03)
[2023-04-27 14:08] LABS: EPI CELLS 24 /uL (0-25.1); HYALINE CASTS 1 /uL (0-3.1); URINE APPEARANCE CLEAR; URINE BACTERIA 19 /uL (0-1359); URINE BILIRUBIN NEGATIVE (NEGATIVE); URINE COLOR YELLOW; URINE GLUCOSE (UA) NEGATIVE (NEGATIVE); URINE KETONE NEGATIVE (NEGATIVE); URINE LEUK ESTERASE TRACE (NEGATIVE); URINE NITRITE NEGATIVE (NEGATIVE); URINE PROTEIN 1+ (NEGATIVE); URINE WBC 50 /uL (0-25.8)
[2023-04-27] MEDS ORDERED: MIDAZOLAM HCL 2 MG/2 ML SINGLE DOSE VIAL ONE (14:50)
[2023-04-27] MEDS ORDERED: FENTANYL CITRATE/PF 50 MCG/ML VIAL ONE ×2 (14:50→16:12)
[2023-04-27] MEDS ORDERED: BUPIVACAINE HCL/PF 0.5% (5MG/ML) 10 ML VIAL ONE (14:51)
[2023-04-27] MEDS ORDERED: PROPOFOL 20 ML ONE (14:56)
[2023-04-27] MEDS ORDERED: ONDANSETRON 4 MG/2 ML VIAL ONE (15:33)
[2023-04-27] MEDS ORDERED: DEXAMETHASONE SOD PHOSPHATE 4 MG/1 ML VIAL ONE (15:33)
[2023-04-27] MEDS: ceFAZolin SODIUM 1 GM VIAL IVPB ONE (15:42)
[2023-04-27] MEDS ORDERED: ONDANSETRON 4 MG/2 ML VIAL IVPUSH PRN (17:02)
[2023-04-27] MEDS ORDERED: ALBUTEROL SO4 HFA INHALER IH PRN (17:10)
[2023-04-27 17:45] LABS: URINE RBC NONE SEEN /uL (0-23.9)
[2023-04-27] MEDS: METOCLOPRAMIDE HCL 10 MG TABLET (FP) PO SCH (18:53)
[2023-04-27] MEDS: CARBIDOPA/LEVODOPA 25/100 TABLET (FP) PO SCH (22:27)
[2023-04-27] MEDS: traMADol HCL 50 MG TABLET PO PRN (22:27)
[2023-04-28] MEDS: CEFAZOLIN 500 MG in DEXTROSE 5%-WATER - 50 ML IVPB SCH ×2 (00:29→01:59)
[2023-04-28] MEDS: LEVOTHYROXINE NA 75 MCG TABLET (FP) PO SCH (06:47)
[2023-04-28 08:14] LABS: BASO % 0.1 % (0-2.0); HEMATOCRIT 20.8 % (32.4-45.2); LYMPH % 8.5 % (8-40); MCH 28.3 pg (25.7-33.7); MCHC 31.7 g/dl (32.0-36.0); MEAN PLT VOLUME 9.1 fl (7.5-11.1); MONO % 8.4 % (3.8-10.2); PLATELET COUNT 153 10^3/uL (134-434); RBC 2.33 M/mm3 (3.60-5.2); RDW 15.7 % (11.6-15.6); WHITE BLOOD COUNT 11.7 K/mm3 (4.0-10.0)
[2023-04-28 08:21] LABS: HEMOGLOBIN 6.6 GM/dL (10.7-15.3)
[2023-04-28] MEDS: TIOTROPIUM BROMIDE 2.5 MCG (SPIRIVA) RESPIMAT INHALER IH SCH (15:34)
[2023-04-28 20:05] LABS: BASO % 0.1 % (0-2.0); HEMOGLOBIN 8.3 GM/dL (10.7-15.3); LYMPH % 9.8 % (8-40); MCH 29.3 pg (25.7-33.7); MCHC 33.2 g/dl (32.0-36.0); MEAN CELL VOLUME 88.1 fl (80-96); MEAN PLT VOLUME 8.7 fl (7.5-11.1); MONO % 13.2 % (3.8-10.2); NEUT % 76.9 % (42.8-82.8); PLATELET COUNT 140 10^3/uL (134-434); RBC 2.84 M/mm3 (3.60-5.2); RDW 14.4 % (11.6-15.6); WHITE BLOOD COUNT 10.2 K/mm3 (4.0-10.0)
[2023-04-29] MEDS: ENOXAPARIN NA (PORCINE) 30 MG/0.3 ML DISP.SYRIN SQ SCH (09:11)
[2023-04-29 10:53] LABS: BASO % 0.1 % (0-2.0); EOS % 0.1 % (0-4.5); HEMATOCRIT 24.3 % (32.4-45.2); HEMOGLOBIN 8.1 GM/dL (10.7-15.3); LYMPH % 8.4 % (8-40); MCH 29.4 pg (25.7-33.7); MCHC 33.3 g/dl (32.0-36.0); MEAN CELL VOLUME 88.3 fl (80-96); MEAN PLT VOLUME 8.8 fl (7.5-11.1); MONO % 13.1 % (3.8-10.2); NEUT % 78.3 % (42.8-82.8); PLATELET COUNT 155 10^3/uL (134-434); RBC 2.75 M/mm3 (3.60-5.2); RDW 14.7 % (11.6-15.6); WHITE BLOOD COUNT 8.7 K/mm3 (4.0-10.0)
[2023-04-29] MEDS ORDERED: ALBUTEROL SO4 HFA INHALER IH PRN (14:11)
[2023-04-29] MEDS: METOCLOPRAMIDE HCL 10 MG TABLET (FP) PO SCH (18:50)
[2023-04-29] MEDS: CARBIDOPA/LEVODOPA 25/100 TABLET (FP) PO SCH (22:19)
[2023-04-30] MEDS: LEVOTHYROXINE NA 75 MCG TABLET (FP) PO SCH (07:00)
[2023-04-30] MEDS: LACTATED RINGERS SOLUTION 1,000 ML IV SCH (08:52)
[2023-04-30] MEDS: CEFAZOLIN 500 MG in DEXTROSE 5%-WATER - 50 ML IVPB SCH (08:53)
[2023-04-30 09:54] LABS: BASO % 0.1 % (0-2.0); EOS % 0.1 % (0-4.5); HEMATOCRIT 24.8 % (32.4-45.2); HEMOGLOBIN 8.1 GM/dL (10.7-15.3); LYMPH % 6.9 % (8-40); MCH 29.8 pg (25.7-33.7); MCHC 32.8 g/dl (32.0-36.0); MEAN CELL VOLUME 90.7 fl (80-96); MONO % 13.3 % (3.8-10.2); NEUT % 79.6 % (42.8-82.8); PLATELET COUNT 164 10^3/uL (134-434); RBC 2.73 M/mm3 (3.60-5.2); RDW 15.1 % (11.6-15.6); WHITE BLOOD COUNT 7.6 K/mm3 (4.0-10.0)
[2023-04-30 10:09] LABS: POTASSIUM 3.9 mmol/L (3.5-5.1)
[2023-04-30] MEDS: ENOXAPARIN NA (PORCINE) 30 MG/0.3 ML DISP.SYRIN SQ SCH (10:12)
[2023-04-30 10:14] LABS: ALBUMIN 2.6 g/dl (3.4-5.0); MAGNESIUM 2.4 mg/dL (1.8-2.4)
[2023-04-30 10:17] LABS: CREATININE 0.4 mg/dL (0.55-1.3)
[2023-04-30 10:18] LABS: BILIRUBIN,TOTAL 0.9 mg/dL (0.2-1)
[2023-04-30 10:19] LABS: TOT PROT 6.3 g/dl (6.4-8.2)
[2023-04-30 10:20] LABS: CALCIUM 9.3 mg/dL (8.5-10.1)
[2023-04-30] MEDS: TIOTROPIUM BROMIDE 2.5 MCG (SPIRIVA) RESPIMAT INHALER IH SCH (10:41)
[2023-05-01 09:57] LABS: EOS % 0.1 % (0-4.5); HEMATOCRIT 23.2 % (32.4-45.2); HEMOGLOBIN 7.6 GM/dL (10.7-15.3); LYMPH % 9.2 % (8-40); MCH 30.1 pg (25.7-33.7); MCHC 32.9 g/dl (32.0-36.0); MEAN CELL VOLUME 91.5 fl (80-96); MEAN PLT VOLUME 8.8 fl (7.5-11.1); MONO % 10.7 % (3.8-10.2); PLATELET COUNT 178 10^3/uL (134-434); POTASSIUM 4.1 mmol/L (3.5-5.1); RBC 2.54 M/mm3 (3.60-5.2); RDW 15.5 % (11.6-15.6); WHITE BLOOD COUNT 6.4 K/mm3 (4.0-10.0)
[2023-05-01 10:02] LABS: ALBUMIN 2.4 g/dl (3.4-5.0); BLOOD UREA NITROGEN 20.5 mg/dL (7-18); MAGNESIUM 1.9 mg/dL (1.8-2.4)
[2023-05-01 10:05] LABS: CREATININE 0.3 mg/dL (0.55-1.3)
[2023-05-01 10:06] LABS: TOT PROT 5.9 g/dl (6.4-8.2)
[2023-05-01 10:07] LABS: BILIRUBIN,TOTAL 0.9 mg/dL (0.2-1)
[2023-05-01] MEDS: ASPIRIN COATED 81 MG TABLET.EC PO SCH (10:57)
[2023-05-01] MEDS: FUROSEMIDE 40 MG/4 ML INJECTABLE VIAL IVPUSH ONE (10:57)
[2023-05-02 07:33] LABS: HEMOGLOBIN 10.5 GM/dL (10.7-15.3); MCH 30.4 pg (25.7-33.7); MEAN CELL VOLUME 89.4 fl (80-96); PLATELET COUNT 202 10^3/uL (134-434); RBC 3.47 M/mm3 (3.60-5.2); RDW 15.6 % (11.6-15.6); WHITE BLOOD COUNT 8.5 K/mm3 (4.0-10.0)
[2023-05-02 07:37] LABS: POTASSIUM 3.7 mmol/L (3.5-5.1)
[2023-05-02 07:39] LABS: ALBUMIN 2.6 g/dl (3.4-5.0); BLOOD UREA NITROGEN 23.3 mg/dL (7-18); CALCIUM 9.2 mg/dL (8.5-10.1); MAGNESIUM 1.7 mg/dL (1.8-2.4)
[2023-05-02 07:42] LABS: CREATININE 0.4 mg/dL (0.55-1.3)
[2023-05-02 07:44] LABS: BILIRUBIN,TOTAL 1.1 mg/dL (0.2-1); TOT PROT 6.3 g/dl (6.4-8.2)
[2023-05-02 09:27] LABS: ANISOCYTOSIS 0; HELMET CELLS 0; HOWELL-JOLLY BODIES 0; MACROCYTOSIS 0; OVALOCYTE 0; ROULEAU 0; SICKELED CELLS 0; TARGET CELLS 0; TEAR DROP CELLS 0; TOXIC GRANULATION 0
[2023-05-02 13:09] VITALS: BMI 17.5
[2023-05-02] MEDS: BISACODYL 5 MG TABLET.DR (FP) PO ONE (18:47)
[2023-05-02] MEDS: POLYETHYLENE GLYCOL (HEALTHYLAX) 3350 17 GM PACKET PO SCH ×2 (18:47→21:51)
[2023-05-03 07:48] LABS: BASO % 0.3 % (0-2.0); EOS % 0.1 % (0-4.5); LYMPH % 9.7 % (8-40); MCH 29.9 pg (25.7-33.7); MCHC 32.5 g/dl (32.0-36.0); MEAN CELL VOLUME 92.1 fl (80-96); MEAN PLT VOLUME 8.5 fl (7.5-11.1); MONO % 12.1 % (3.8-10.2); NEUT % 77.8 % (42.8-82.8); PLATELET COUNT 292 10^3/uL (134-434); RBC 3.69 M/mm3 (3.60-5.2); RDW 15.6 % (11.6-15.6); WHITE BLOOD COUNT 9.1 K/mm3 (4.0-10.0)
[2023-05-03 08:00] LABS: POTASSIUM 4.2 mmol/L (3.5-5.1)
[2023-05-03 08:05] LABS: ALBUMIN 2.8 g/dl (3.4-5.0); BLOOD UREA NITROGEN 28.5 mg/dL (7-18)
[2023-05-03 08:08] LABS: CREATININE 0.5 mg/dL (0.55-1.3)
[2023-05-03 08:09] LABS: BILIRUBIN,TOTAL 0.9 mg/dL (0.2-1); TOT PROT 6.5 g/dl (6.4-8.2)
[2023-05-03] MEDS: metoPROLOL SUCCINATE 25 MG TAB.SR.24H (FP) PO SCH (10:02)
[2023-05-03] MEDS: VALSARTAN 40 MG TABLET PO SCH (10:02)
[2023-05-04 07:45] LABS: BASO % 0.3 % (0-2.0); EOS % 0.3 % (0-4.5); HEMATOCRIT 32.7 % (32.4-45.2); HEMOGLOBIN 10.6 GM/dL (10.7-15.3); LYMPH % 7.1 % (8-40); MCH 30.2 pg (25.7-33.7); MCHC 32.4 g/dl (32.0-36.0); NEUT % 81.3 % (42.8-82.8); PLATELET COUNT 302 10^3/uL (134-434); RBC 3.52 M/mm3 (3.60-5.2); RDW 16.2 % (11.6-15.6); WHITE BLOOD COUNT 11.3 K/mm3 (4.0-10.0)
[2023-05-04 08:23] LABS: POTASSIUM 4.2 mmol/L (3.5-5.1)
[2023-05-04 08:29] LABS: CALCIUM 9.4 mg/dL (8.5-10.1); MAGNESIUM 2.4 mg/dL (1.8-2.4)
[2023-05-04 08:30] LABS: ALBUMIN 2.7 g/dl (3.4-5.0)
[2023-05-04 08:31] LABS: BLOOD UREA NITROGEN 27.3 mg/dL (7-18)
[2023-05-04 08:32] LABS: CREATININE 0.4 mg/dL (0.55-1.3)
[2023-05-04 08:34] LABS: TOT PROT 6.2 g/dl (6.4-8.2)
[2023-05-04] MEDS: MULTIVITAMINS (DAILY MVI) TABLET (FP) PO SCH (09:55)
[2023-05-04] MEDS: DOCUSATE SODIUM 100 MG CAPSULE (FP) PO SCH (12:28)
[2023-05-05 07:12] LABS: EOS % 1.8 % (0-4.5); HEMATOCRIT 33.5 % (32.4-45.2); HEMOGLOBIN 10.8 GM/dL (10.7-15.3); LYMPH % 7.6 % (8-40); MCH 30.2 pg (25.7-33.7); MCHC 32.4 g/dl (32.0-36.0); MEAN CELL VOLUME 93.3 fl (80-96); MONO % 9.4 % (3.8-10.2); NEUT % 81.2 % (42.8-82.8); PLATELET COUNT 291 10^3/uL (134-434); RBC 3.59 M/mm3 (3.60-5.2); RDW 15.9 % (11.6-15.6); WHITE BLOOD COUNT 9.8 K/mm3 (4.0-10.0)
[2023-05-05 07:29] LABS: POTASSIUM 4.4 mmol/L (3.5-5.1)
[2023-05-05 07:31] LABS: CALCIUM 9.4 mg/dL (8.5-10.1)
[2023-05-05 07:32] LABS: ALBUMIN 2.6 g/dl (3.4-5.0); BLOOD UREA NITROGEN 20.6 mg/dL (7-18); MAGNESIUM 2.2 mg/dL (1.8-2.4)
[2023-05-05 07:35] LABS: CREATININE 0.4 mg/dL (0.55-1.3)
[2023-05-05 07:37] LABS: TOT PROT 5.8 g/dl (6.4-8.2)
[2023-05-05] MEDS: traMADol HCL 50 MG TABLET PO PRN (21:21)
[2023-05-05 22:34] VITALS: RESP 18
[2023-05-06 06:33] VITALS: TEMP 97.8
[2023-05-06 07:07] LABS: EOS % 1.5 % (0-4.5); HEMATOCRIT 31.5 % (32.4-45.2); HEMOGLOBIN 10.5 GM/dL (10.7-15.3); LYMPH % 8.7 % (8-40); MCH 30.8 pg (25.7-33.7); MCHC 33.2 g/dl (32.0-36.0); MEAN CELL VOLUME 92.7 fl (80-96); MEAN PLT VOLUME 8.9 fl (7.5-11.1); MONO % 9.1 % (3.8-10.2); NEUT % 80.7 % (42.8-82.8); PLATELET COUNT 268 10^3/uL (134-434); RBC 3.39 M/mm3 (3.60-5.2); RDW 16.7 % (11.6-15.6); WHITE BLOOD COUNT 8.1 K/mm3 (4.0-10.0)
[2023-05-06 07:22] LABS: POTASSIUM 4.1 mmol/L (3.5-5.1)
[2023-05-06 07:24] LABS: CALCIUM 8.5 mg/dL (8.5-10.1)
[2023-05-06 07:25] LABS: ALBUMIN 2.5 g/dl (3.4-5.0); BLOOD UREA NITROGEN 18.7 mg/dL (7-18); MAGNESIUM 2.1 mg/dL (1.8-2.4)
[2023-05-06 07:28] LABS: CREATININE 0.3 mg/dL (0.55-1.3)
[2023-05-06 07:29] LABS: TOT PROT 5.5 g/dl (6.4-8.2)
[2023-05-06 07:30] LABS: BILIRUBIN,TOTAL 0.8 mg/dL (0.2-1)
[2023-05-06 10:48] VITALS: BP 113/62; PULSE 85
== END 2023-05-06 10:58 | DRG 480 ==
LOC: JER 23:46 → JERBED 04-26 02:32 → J8W 04-26 05:28 → J4W 04-27 18:53 → J8W 04-29 13:37 → J4S 05-01 01:10
PROVIDERS: ADMIT Internal Medicine; ATTEND Internal Medicine
PROC: 0QS604Z Reposition Right Upper Femur with Internal Fixation Device, Open Approach (ICD-10-PCS; principal; 2023-04-27 15:00)
PROC: 30233N1 Transfusion of Nonautologous Red Blood Cells into Peripheral Vein, Percutaneous Approach (ICD-10-PCS; 2023-04-28)
DX: S72.141A Displaced intertrochanteric fracture of right femur, initial encounter for closed fracture (principal); E43 Unspecified severe protein-calorie malnutrition; I50.32 Chronic diastolic (congestive) heart failure; Z68.1 Body mass index [BMI] 19.9 or less, adult; I24.89 Other forms of acute ischemic heart disease; J96.11 Chronic respiratory failure with hypoxia; J96.12 Chronic respiratory failure with hypercapnia; R64 Cachexia; I11.0 Hypertensive heart disease with heart failure; D64.9 Anemia, unspecified; M81.0 Age-related osteoporosis without current pathological fracture; W19.XXXA Unspecified fall, initial encounter; Y93.9 Activity, unspecified; Y92.89 Other specified places as the place of occurrence of the external cause; Y99.9 Unspecified external cause status; J44.9 Chronic obstructive pulmonary disease, unspecified
CPT/HCPCS: 0241U-QW; 36415; 36430; 70450-TC; 71045-TC-FY; 72125-TC; 72170-TC-FY; 73502-TC-RT-FY; 73560-TC-RT-FY; 73590-TC-RT-FY; 73610-TC-RT-FY; 74230-TC-FY; 76000-TC-FY; 80053; 81003; 82803; 83735; 83880; 84100; 84443; 84484; 85025; 85610; 85730; 86850; 86900; 86901; 86922; 87086; 92611-GN; 93005; 93010; 93306-TC; 94010; 94760; 97116-GP; 97162-GP; 99285-25; C1713; J0131; P9058